=== PATIENT | male | born 1955 | race Caucasian/White ===

== ENCOUNTER 2020-12-10 09:41 | Emergency (ER) | payer OTHER, SELFPAY ==
[2020-12-10 10:02] VITALS: BP 148/86; PULSE 75; RESP 15; TEMP 36.3; O2SAT 99; BMI 34.5
--- NOTE | 2020-12-10 10:11 | ECG_ITS ---
[facility] Test Date: 2020-12-10 Pat Name: Carlos Schmitt Department: Room: Gender: Male Admitting Office Escort: : 1955 Requested By: Shivam Tejada Order Number: [id number] Leonora MD: Marly Villa M.D. Measurements Intervals [place] Rate: 66 P: 58 DC: 185 QRS: 11 QRSD: 110 T: 29 QT: 397 QTc: 416 Interpretive Statements SINUS RHYTHM No previous ECG available for comparison Electronically Signed On 12-11-2020 9:38:39 CDT by Marly Villa M.D. [email or web address] [email or web address] [facility] of meridianK2 Intelligencesumma [facility].Pigit/store/OM/[id number]
--- NOTE | 2020-12-10 10:35 | CTR_ITS ---
PROCEDURE INFORMATION: Exam: CT Abdomen And Pelvis With Contrast Exam date and time: 12/10/2020 10:35 AM Age: 65 years old Clinical indication: Abdominal pain; Colic; Additional info: Abd pain TECHNIQUE: Imaging protocol: Computed tomography of the abdomen and pelvis with contrast. Sagittal and coronal reformatted images were created and reviewed. Radiation optimization: All CT scans at this facility use at least one of these dose optimization techniques: automated exposure control; mA and/or kV adjustment per patient size (includes targeted exams where dose is matched to clinical indication); or iterative reconstruction. Contrast material: OMNIPAQUE 300; Contrast volume: 95 ml; Contrast route: INTRAVENOUS (IV); COMPARISON: No relevant prior studies available. RADIATION DOSE METRICS: Total DLP (mGy-cm): 1875.87 FINDINGS: Lungs: Visualized lungs are clear. Pleural spaces: No pleural effusion. Heart: Visualized portions of the heart are unremarkable. Liver: The liver is unremarkable. Gallbladder and bile ducts: Mildly increased radiopaque focus in the gallbladder adjacent to the anterior wall measuring 1.1 x 1.2 cm (series 2, image 27). No gallbladder wall thickening. No biliary ductal dilatation. Pancreas: The pancreas is unremarkable. No pancreatic ductal dilatation. Spleen: Multiple calcified granulomas in the spleen. Adrenal glands: The right and left adrenal glands are unremarkable. Kidneys and ureters: Subcentimeter hypodense foci in both right and left kidneys that are too small to characterize, however likely represent small cysts. Simple cyst in the left kidney measuring 1.7 cm (series 2, image 32). The right and left ureters are unremarkable. Stomach and bowel: Numerous diverticula in the descending colon and sigmoid colon. No acute abnormality in the small bowel. Appendix: The appendix is visualized and is unremarkable. No findings to suggest acute appendicitis. Intraperitoneal space: Marked wall thickening with extensive surrounding pericolonic inflammatory change and free fluid involving the proximal sigmoid colon. Vasculature: Mild atherosclerotic changes in the visualized arteries. No evidence for aortic aneurysm or aortic dissection. Hepatic veins, portal veins, splenic vein, and SMV are patent. Lymph nodes: No lymphadenopathy. Urinary bladder: Diffuse, moderate wall thickening of the bladder. Reproductive: Unremarkable as visualized. Bones/joints: Moderate degenerative changes at both the right and left hips. Mild degenerative changes of the right and left sacroiliac joints. Multilevel degenerative changes of varying severity in the visualized spine. Soft tissues: Small, fat-containing umbilical hernia. No evidence for strangulation. No acute abnormality in the extra-abdominal soft tissues. CT/CT abdomen pelvis w con* [id number] IMPRESSION: 1. Descending colon and sigmoid diverticulosis. Changes consistent with severe diverticulitis in the proximal sigmoid colon. 2. Mildly increased radiopaque focus in the gallbladder adjacent to the anterior wall. This may represent a small adherent gallstone or gallbladder polyp. Further evaluation recommended with ultrasound of the gallbladder on a nonemergent basis. 3. Diffuse, moderate wall thickening of the bladder. In the correct clinical setting, this may suggest cystitis. Recommend correlation with laboratory findings. Alternatively, this may be secondary to chronic outlet obstruction. 4. Small, fat-containing umbilical hernia. No evidence for strangulation. 5. Incidental/nonacute findings are listed in the report. COMMENTS: Consistent with the [employer]'s Incidental Findings Committee white paper (J Am Gifty Radiol 2018): Any incidental renal lesion less than 1 cm or classified as too small to characterize, or any incidental cystic renal lesion characterized as simple-appearing, is likely benign. No follow-up imaging is recommended for these lesions per consensus recommendations based on imaging criteria. Radiation Dose CTDIVOL = (mGy): DLP = 1875.87 (mGy-cm)
--- NOTE | 2020-12-10 10:45 | ECG_ITS ---
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 Measurements Intervals [place] Rate: 70 P: 35 TN: 182 QRS: -8 QRSD: 103 T: 16 QT: 385 QTc: 417 Interpretive Statements SINUS RHYTHM No previous ECG available for comparison Electronically Signed On 12-11-2020 9:38:34 CDT by Marly Villa M.D. [id number] f
[2020-12-10 10:46] LABS: Add Urine Microscopic? NO; Charge for UA Resulting for Rev
[2020-12-10 11:03] LABS: Bilirubin Urine 1+ (Negative); Blood Urine Neg (Negative); Glucose Urine UA Norm (Normal); Ketones Urine Negative (Negative); Leukocyte Esterase Urine Negative (Negative); Nitrate Urine Negative (Negative); Protein Urine Neg (Negative); Specific Gravity, Urine 1.025 (1.005-1.030); Sulfosalicylic Acid Urine Negative (Negative); Urine Appearance Clear (CLEAR); Urine Color Yellow (Yellow); Urobilinogen Urine Norm (Negative); pH Urine 5 (5-7)
[2020-12-10 11:07] LABS: Basophils # 0.1 10^3/uL (0.0-0.1); Basophils % 0.3 %; Eosinophils # 0.1 10^3/uL (0.0-0.8); Eosinophils % 0.4 %; Hematocrit 43.9 % (42.0-52.0); Hemoglobin 14.4 g/dL (11.7-16.6); Lymphocytes # 2.9 10^3/uL (0.8-4.8); Lymphocytes % 20.2 %; Mean Corpuscular HGB Conc 32.8 g/dL (30.0-36.0); Mean Corpuscular Hemoglobin 31.9 pg (28.0-34.0); Mean Corpuscular Volume 97.1 fL (80-94); Mean Platelet Volume 11.5 fL (7.4-10.4); Monocytes # 1.4 10^3/uL (0.2-0.9); Monocytes % 9.5 %; Neutrophils % 69.2 %; Nucleated Red Blood Cells % 0 %; Platelet Count 260 10^3/cmm (130-400); Red Blood Count 4.52 10^6/uL (4.1-5.3); Red Cell Distribution Width 12.4 % (12.1-15.1); White Blood Count 14.5 10^3/uL (4.0-10.0)
[2020-12-10] MEDS: sodium chloride 0.9% 1,000 ML 999 ML IV (11:10)
[2020-12-10] MEDS: ondansetron 2 mg/ML SDV 2 mL 4 MG IVP (11:10)
--- NOTE | 2020-12-10 11:28 | W.ED.ABDPA2 ---
HPI - Abdominal Pain General: Chief Complaint: Abdominal Pain Stated Complaint: LLQ abd pain Time Seen by Provider: 12/10/20 10:04 History of Present Illness: HPI narrative: 65-year-old male comes in complaining infraumbilical abdominal pain that began yesterday is more localized to his left lower quadrant denies any nausea vomiting diarrhea no hematochezia melena hematemesis coffee-ground emesis he said several colonoscopies in the past with removal of polyps he has never had episodes of diverticulitis he denies any dysuria urgency or frequency or hematuria. MD elicited complaint: abdominal pain Pertinent past history: other (Umbilical hernia) Onset (ago): hour(s) Pain Consistency: constant Location: LLQ Severity: moderate Quality: cramping Radiation: none Exacerbating factors: eating and movement Relieving factors: rest Associated Symptoms: Reports anorexia, bloating, GI cramping, nausea and poor appetite; Denies belching, change in bowel habits, change in stool character, chills, coffee ground emesis, constipation, diarrhea, dyspepsia, dysuria, excessive flatus, fever(s), heartburn, hematochezia, hematuria, hematemesis, fecal incontinence, loose stools, melena, syncope and vomiting Review of Systems Const: Denies: fever(s) or chills ENMT: Denies: throat pain, ear or mastoid pain, nasal discharge or nasal congestion Card: Denies: syncope Resp: Denies: dyspnea, productive cough or non-productive cough GI: Reports: nausea, bloating and GI cramping; Denies: vomiting, hematemesis, coffee ground emesis, heartburn, diarrhea, constipation, belching, excessive flatus, fecal incontinence, change in bowel habits, change in stool character, hematochezia or melena : Denies: dysuria or hematuria Skin/Breast: Denies: rash or pruritus Physical Exam Const: COMMON NORMALS: no acute distress GENERAL APPEARANCE: cooperative and comfortable ORIENTATION/CONSCIOUSNESS: Yes awake, Yes oriented to person, Yes oriented to place and Yes oriented to time HENMT: COMMON NORMALS: normocephalic, atraumatic, hearing grossly normal bilaterally and external ears normal HEAD & SCALP: normocephalic and atraumatic EXTERNAL EAR: Yes external ears normal Neck/C-Spine: COMMON NORMALS: no JVD Resp: COMMON NORMALS: normal respiratory effort, No retractions, No use of accessory muscles and clear to auscultation bilaterally AUSCULTATION: clear to auscultation bilaterally Cardio: COMMON NORMALS: no JVD, regular rate, regular rhythm and No murmurs present (Cardio) RATE: regular rate RHYTHM: regular rhythm GI: COMMON NORMALS: No hepatosplenomegaly present AUSCULTATION: Yes normoactive bowel sounds PALPATION: Yes Tenderness to palpation present (GI) Details: LLQ, No Guarding due to palpation present (GI) and Yes No hepatosplenomegaly present Extremity: COMMON NORMALS: normal to inspection, capillary refill normal, no clubbing, cyanosis or edema, no calf tenderness and no pedal edema Neuro: SENSORIUM/ORIENTATION: Yes oriented to person, Yes oriented to place and Yes oriented to time Skin: COMMON NORMALS: no rashes or lesions noted GENERAL SKIN EXAM: no rashes or lesions noted Course Vital Signs: Vital signs: Vital Signs Temperature 97.3 F L 12/10/20 10:02 Pulse Rate 63 12/10/20 12:53 Respiratory Rate 14 12/10/20 12:53 Blood Pressure 124/59 12/10/20 12:53 Pulse Oximetry 99 12/10/20 12:53 MDM - Abdominal Pain MDM Narrative: Medical decision making narrative: reviewed findings the patient will start on antibiotics orally and treat as an outpatient return if is worsening symptom. Lab Data: Labs: Lab Results 12/10/20 12/10/20 12/10/20 Range/Units 10:25 10:53 10:53 WBC 14.5 H (4.0-10.0) 10^3/ uL RBC 4.52 (4.1-5.3) 10^6/u L Hgb 14.4 (11.7-16.6) g/dL Hct 43.9 (42.0-52.0) % MCV 97.1 H (80-94) fL MCH 31.9 (28.0-34.0) pg MCHC 32.8 (30.0-36.0) g/dL RDW 12.4 (12.1-15.1) % Plt Count 260 (130-400) 10^3/c mm MPV 11.5 H (7.4-10.4) fL Neut % (Auto) 69.2 % Lymph % (Auto) 20.2 % Heard % (Auto) 9.5 % Eos % (Auto) 0.4 % Baso % (Auto) 0.3 % Neut # (Auto) 10.00 H (1.8-7.7) 10^3/u L Lymph # (Auto) 2.9 (0.8-4.8) 10^3/u L Heard # (Auto) 1.4 H (0.2-0.9) 10^3/u L Eos # (Auto) 0.1 (0.0-0.8) 10^3/u L Baso # (Auto) 0.1 (0.0-0.1) 10^3/u L Nucleated RBC % (a uto) 0 % Nucleated RBCs # 0.0 /100WBC Sodium 139 (136-145) mmol/L Potassium 4.0 (3.5-5.1) mmol/L Chloride 104 (98-107) mmol/L Carbon Dioxide 24 (22-29) mmol/L Anion Gap 15.0 (5-19) BUN 15 (8-23) mg/dL Creatinine 0.9 (0.7-1.2) mg/dL GFR Calculation 85.2 L (90-130) mL/min Glucose 102 (65-115) mg/dL Calculated Osmolal ity 289 (285-295) mOsm/k g Calcium 9.2 (8.5-10.5) mg/dL Total Bilirubin 0.6 (0.15-1.2) mg/dL AST 25 (0-40) U/L ALT 37 (0-41) U/L Alkaline Phosphata se 35 L (40-130) IU/L Total Protein 6.9 (6.6-8.7) g/dL Albumin 4.0 (3.5-5.2) g/dL Globulin 2.9 (1.3-4.6) g/dL Lipase 27 (13-60) U/L Urine Color Yellow (Yellow) Urine Appearance Clear (CLEAR) Urine pH 5 (5-7) Ur Specific Gravit y 1.025 (1.005-1.030) Urine Protein Neg (Negative) Urine Glucose (UA) Norm (Normal) Urine Ketones Negative (Negative) Urine Blood Neg (Negative) Urine Nitrate Negative (Negative) Urine Bilirubin 1+ H (Negative) Prot Sulfosalicyli c Acd Negative (Negative) Urine Urobilinogen Norm (Negative) mg/dL Ur Leukocyte Vanessa ase Negative (Negative) Discharge Plan Discharge Patient Disposition: Home Clinical Impression: Diverticulitis Condition: Stable Prescriptions: New hydrocodone-acetaminophen 5-325 mg tablet 1 tab PO Q6H PRN (Reason: pain) Qty: 20 RF: 0 Zofran 4 mg tablet 4 mg PO Q6H PRN (Reason: nausea and vomiting) Qty: 15 RF: 0 Cipro 500 mg tablet 500 mg PO BID Qty: 14 RF: 0 Discharge Orders: Discharge ED (Routine); Ordered 12/10/20 Ordered By: Shivam Brenner Referrals: Ronaldo Curran MD [Primary Care Provider] - Patient Instructions: Opioid Safety Coding Level of Care Code ED Sales Record Clerk for Evelin Fwd Exam Comprehensive
[2020-12-10 11:39] LABS: Alanine Aminotransferase 37 U/L (0-41); Alkaline Phosphatase 35 IU/L (40-130); Aspartate Amino Transferase 25 U/L (0-40); Blood Urea Nitrogen 15 mg/dL (8-23); Calcium 9.2 mg/dL (8.5-10.5); Carbon Dioxide 24 mmol/L (22-29); Chloride 104 mmol/L (98-107); Globulin 2.9 g/dL (1.3-4.6); Glomerular Filtration Rate 85.2 mL/min (90-130); Glucose 102 mg/dL (65-115); Lipase 27 U/L (13-60); Osmolality Calculated 289 mOsm/kg (285-295); Sodium 139 mmol/L (136-145); Total Bilirubin 0.6 mg/dL (0.15-1.2); Total Protein 6.9 g/dL (6.6-8.7)
[2020-12-10] MEDS: iohexol 300 mg/mL 100 mL Btl IV (12:25)
[2020-12-10 12:53] VITALS: BP 124/59; PULSE 63; RESP 14; O2SAT 99
--- NOTE | 2021-02-09 13:27 | PC.SOCIAL ---
follow up discharge call made, no answer, message left.
== END 2020-12-10 14:50 | disposition home or self-care (01) ==
PROVIDERS: Emergency Provider Family Medicine; PCP Family Medicine
DX: K57.92 Diverticulitis of intestine, part unspecified, without perforation or abscess without bleeding (principal)
CPT/HCPCS: 74177; 80053; 81003; 83690; 85025; 93005; 96361; 96374; 99284; J2405; J7030; Q9967

== ENCOUNTER 2021-02-03 07:02 | Observation (INO) | payer OTHER, SELFPAY ==
[2021-02-03] VITALS (17 sets, daily range): BP systolic 101–142; BP diastolic 49–81; PULSE 49–74; RESP 17–20; TEMP 36.7–36.8; O2SAT 94–98
--- NOTE | 2021-02-03 07:32 | CT_ITS ---
WS: [id number] CT ABDOMEN PELVIS TECHNIQUE: Contrast-enhanced CT of the abdomen and pelvis with coronal and sagittal reformatted image s. CLINICAL INFORMATION: LLQ abdominal pain, ?diverticulitis COMPARISON: December 10, 2020 DLP: 1857.[address] scans at [facility] use at least one of these dose optimization techniques: automat ed exposure control; mA and/or kV adjustment per patient size (includes targeted exams where dose is matched to clinical indication); or iterative reconstruction. FINDINGS: Moderate diffuse thickening of the descending left colon extending to the proximal sigmoid. Colonic t hickening with surrounding inflammatory stranding and edema compatible with acute diverticulitis. Thi s appears to involve the more proximal segment compared to the prior examination. No evidence of drai nable abscess or fluid collection. Normal liver. Normal portal vein and splenic vein. Normal gallbladder is unchanged in appearance with small calculus or polyp. Splenic granulomas. Normal GE junction. Enhancing masslike lesion in the gastric body measuring 3.5 x 3.4 CM. In retrospect this was present previously. Findings suspicious for gastric neoplasm. Recommend further evaluation with endoscopy. No gastric obstruction. Lung bases are well aerated. Normal pancreas. Adrenal glands are normal. Normal renal parenchymal enh ancement. No hydronephrosis. Bilateral renal cysts. Normal caliber abdominal aorta. No abdominal or p elvic lymphadenopathy. Prominent prostate. Evidence of mild bladder outlet obstruction. No pelvic lym phadenopathy. Fat-containing umbilical hernia. Impression CT/CT abdomen pelvis w con* [id number] IMPRESSION: 1. Acute diverticulitis in the left lower quadrant involving the distal descen ding left colon. No drainable abscess or fluid collection. This is just proxima l to the area of previously described diverticulitis which is essentially resol cruz. 2. Masslike heterogeneously enhancing lesion involving the intraluminal body o f the stomach measuring 3.6 x 3.4 cm suspicious for gastric neoplasm. Recommend further evaluation with endoscopy. No evidence of high-grade gastric obstructi on. 3. Stable small increased attenuation lesion in the gallbladder likely calculu s or polyp. This can be further evaluated with ultrasound. 4. Bilateral renal cysts. 5. Prominent prostate. Correlation PSA. Evidence of mild bladder outlet obstru ction. Notified Dany Brantley MD at 02/03/2021 9:44 AM.
--- NOTE | 2021-02-03 07:34 | ED_ITS ---
HPI - Abdominal Pain General: Chief Complaint: ER Hold Stated Complaint: pain in abd Time Seen by Provider: 02/03/21 07:15 History of Present Illness: HPI narrative: Mr. Schmitt is a 65-year-old gentleman with significant past medical history of diverticulitis who presents emergency department due to abdominal pain. He reports pain at his baseline health yesterday and even felt well enough to play a round of golf. This morning about 5:30 AM he woke up with a left lower quadrant abdominal pain. The pain is aching and sharp in quality and radiates mildly towards the groin. He has associated nausea but no vomiting. He has associated feeling like he has to pass gas. His last bowel movement was normal yesterday. He endorses moderate to severe intensity pain that is worse with palpation. This is fairly similar to previous episodes. He was initially diagnosed with diverticulitis in November and went through 2 rounds of medications with improvement in symptoms. No other significant changes in health, provoking, exacerbating, or relieving factors t hat the patient can think of. Review of Systems General: Reports: 10 or more systems reviewed and unremarkable except in HPI and below Narrative: CONSTITUTIONAL: denies fever, fatigue, weakness EYES - denies pain, denies loss of vision NOSE - denies congestion or rhinorrhea. THROAT - denies sore throat or difficulty swallowing. CARDIOVASCULAR - denies chest pain and palpitations RESPIRATORY - denies shortness of breath and cough GASTROINTESTINAL -see HPI GENITOURINARY - denies dysuria or urinary frequency MUSCULOSKELETAL- denies deformity or pain SKIN - denies rashes or new changed skin lesions NEUROLOGIC - denies focal weakness or sensory changes HEMATOLOGIC/LYMPHATIC - denies easy bruising or lymphadenopathy. [facility] ED PFSH: Medical History (Updated 02/03/21 @ 13:[address] MD) Alcohol intake above recommended sensible limits BPH (benign prostatic hyperplasia) Gout Hyperlipidemia Hypertension Nicotine dependence Obesity Social History (Updated 02/03/21 @ 13:[address] MD) Smoking and tobacco status: current every day smoker smokeless tobacco Alcohol intake: current Alcohol intake frequency: 3 or more drinks per day Alcohol type: beer Physical Exam Narrative: EXAM NARRATIVE: GENERAL/CONSTITUTIONAL - well-appearing. Uncomfortable due to pain Eyes - PERRL, no conjunctival injection ENMT - Atraumatic external nose and ears. Moist mucous membranes NECK - supple. trachea midline CARDIOVASCULAR - regular rate and rhythm. Peripheral pulses 2+ and equal RESPIRATORY -clear to auscultation bilaterally. No retractions or accessory muscle use. ABDOMEN/GI -tenderness to palpation of left lower quadrant no tenderness to percussion or evidence of peritonitis MSK - Extremities without obvious deformity or tenderness to palpation SKIN - Warm, Dry NEURO - alert and appropriately oriented. strength and sensation intact. Moves all extremities equally. PSYCH - Appropriate mood and affect Course ED course: - Patient was seen and evaluated by me at bedside - Patient placed on cardiac monitors, IV access obtained - Initial evaluation notable for uncomfortable due to pain, no evidence of remote peritonitis on abdominal exam. Localized tenderness to percussion present. -Offered analgesia which the patient declined. - Labs notable for leukocytosis - Imaging notable for diverticulitis without evidence of abscess or rupture -I discussed the results of ED evaluation with the patient. Previous diverticulitis was complicated by failure of outpatient regimen and both the patient and his were extremely reticent to discharge on oral medications - Upon serial reexamination after treatment the patient was similar. The patient continued to decline analgesia. - Based on patient history, evaluation, labs, and imaging as interpreted the most likely cause of the patient's condition is diverticulitis -Hospitalist service was consulted and came to evaluate the patient. Patient to be admitted for observation class. - Patient was admitted without further deterioration or significant events. Vital Signs: Vital signs: Vital Signs Temperature 98.8 F 02/05/21 04:00 Pulse Rate 48 L 02/05/21 04:00 Respiratory Rate 18 02/05/21 04:00 Blood Pressure 111/62 02/05/21 04:00 Pulse Oximetry 96 02/05/21 04:00 MDM - Abdominal Pain Medical Records: Attestation: I reviewed the patient's medical records. Lab Data: Attestation: I reviewed the patient's lab results. Labs: Lab Results 02/03/21 02/03/21 02/03/21 Range/Units 07:41 07:41 07:41 WBC 14.0 H (4.0-10.0) 10^3/ uL RBC 4.44 (4.1-5.3) 10^6/u L Hgb 14.1 (11.7-16.6) g/dL Hct 42.7 (42.0-52.0) % MCV 96.2 H (80-94) fl MCH 31.8 (28.0-34.0) pg MCHC 33.0 (30.0-36.0) g/dL RDW 12.8 (12.1-15.1) % Plt Count 286 (130-400) 10^3/c mm MPV 11.1 H (7.4-10.4) fL Neut % (Auto) 63.6 % Lymph % (Auto) 24.7 % [place] % (Auto) 9.7 % Eos % (Auto) 1.3 % Baso % (Auto) 0.4 % Neut # (Auto) 8.93 H (1.8-7.7) 10^3/u L Lymph # (Auto) 3.5 (0.8-4.8) 10^3/u L [place] # (Auto) 1.4 H (0.2-0.9) 10^3/u L Eos # (Auto) 0.2 (0.0-0.8) 10^3/u L Baso # (Auto) 0.1 (0.0-0.1) 10^3/u L Nucleated RBC % (a uto) 0 % Nucleated RBCs # 0.0 /100WBC Sodium 137 (136-145) mmol/L Potassium 4.2 (3.5-5.1) mmol/L Chloride 103 (98-107) mmol/L Carbon Dioxide 26 (22-29) mmol/L Anion Gap 12.2 (5-19) BUN 10 (8-23) mg/dL Creatinine 0.7 (0.7-1.2) mg/dL GFR Calculation 113.9 (90-130) mL/min Glucose 98 (65-115) mg/dL Calculated Osmolal ity 283 L (285-295) mOsm/k g Lactate 1.2 (0.5-2.2) mmol/L Calcium 8.8 (8.5-10.5) mg/dL Total Bilirubin 0.4 (0.15-1.2) mg/dL AST 17 (0-40) U/L ALT 18 (0-41) U/L Alkaline Phosphata se 33 L (40-130) IU/L Total Protein 6.8 (6.6-8.7) g/dL Albumin 4.1 (3.5-5.2) g/dL Globulin 2.7 (1.3-4.6) g/dL Lipase 34 (13-60) U/L TSH (0.27-4.20) uIU/ mL Urine Color (Yellow) Urine Appearance (CLEAR) Urine pH (5-7) Ur Specific Gravit y (1.005-1.030) Urine Protein (Negative) Urine Glucose (UA) (Normal) Urine Ketones (Negative) Urine Blood (Negative) Urine Nitrate (Negative) Urine Bilirubin (Negative) Urine Urobilinogen (Negative) mg/dL Ur Leukocyte Vanessa ase (Negative) 02/03/21 02/03/21 Range/Units 07:41 08:49 WBC (4.0-10.0) 10^3/ uL RBC (4.1-5.3) 10^6/u L Hgb (11.7-16.6) g/dL Hct (42.0-52.0) % MCV (80-94) fl MCH (28.0-34.0) pg MCHC (30.0-36.0) g/dL RDW (12.1-15.1) % Plt Count (130-400) 10^3/c mm MPV (7.4-10.4) fL Neut % (Auto) % Lymph % (Auto) % [place] % (Auto) % Eos % (Auto) % Baso % (Auto) % Neut # (Auto) (1.8-7.7) 10^3/u L Lymph # (Auto) (0.8-4.8) 10^3/u L [place] # (Auto) (0.2-0.9) 10^3/u L Eos # (Auto) (0.0-0.8) 10^3/u L Baso # (Auto) (0.0-0.1) 10^3/u L Nucleated RBC % (a uto) % Nucleated RBCs # /100WBC Sodium (136-145) mmol/L Potassium (3.5-5.1) mmol/L Chloride (98-107) mmol/L Carbon Dioxide (22-29) mmol/L Anion Gap (5-19) BUN (8-23) mg/dL Creatinine (0.7-1.2) mg/dL GFR Calculation (90-130) mL/min Glucose (65-115) mg/dL Calculated Osmolal ity (285-295) mOsm/k g Lactate (0.5-2.2) mmol/L Calcium (8.5-10.5) mg/dL Total Bilirubin (0.15-1.2) mg/dL AST (0-40) U/L ALT (0-41) U/L Alkaline Phosphata se (40-130) IU/L Total Protein (6.6-8.7) g/dL Albumin (3.5-5.2) g/dL Globulin (1.3-4.6) g/dL Lipase (13-60) U/L TSH 2.17 (0.27-4.20) uIU/ mL Urine Color Straw (Yellow) Urine Appearance Clear (CLEAR) Urine pH 5 (5-7) Ur Specific Gravit y 1.015 (1.005-1.030) Urine Protein Neg (Negative) Urine Glucose (UA) Norm (Normal) Urine Ketones Negative (Negative) Urine Blood Neg (Negative) Urine Nitrate Negative (Negative) Urine Bilirubin Neg (Negative) Urine Urobilinogen Norm (Negative) mg/dL Ur Leukocyte Vanessa ase Negative (Negative) Discharge Plan Discharge Patient Disposition: Admitted As Inpatient Admit Provider: Luis Lane Coding Level of Care Code ED Odd Shoe Examiner for Evelin Kelly
[2021-02-03] MEDS: sodium chloride 0.9% 500 ML IV (07:46)
[2021-02-03 07:48] LABS: Basophils # 0.1 10^3/uL (0.0-0.1); Basophils % 0.4 %; Eosinophils # 0.2 10^3/uL (0.0-0.8); Eosinophils % 1.3 %; Hematocrit 42.7 % (42.0-52.0); Hemoglobin 14.1 g/dL (11.7-16.6); Lymphocytes # 3.5 10^3/uL (0.8-4.8); Lymphocytes % 24.7 %; Mean Corpuscular Hemoglobin 31.8 pg (28.0-34.0); Mean Corpuscular Volume 96.2 fl (80-94); Mean Platelet Volume 11.1 fL (7.4-10.4); Monocytes # 1.4 10^3/uL (0.2-0.9); Monocytes % 9.7 %; Neutrophils # 8.93 10^3/uL (1.8-7.7); Neutrophils % 63.6 %; Nucleated Red Blood Cells % 0 %; Platelet Count 286 10^3/cmm (130-400); Red Blood Count 4.44 10^6/uL (4.1-5.3); Red Cell Distribution Width 12.8 % (12.1-15.1)
[2021-02-03 08:06] LABS: Lactate (Lactic Acid level) 1.2 mmol/L (0.5-2.2)
[2021-02-03 08:13] LABS: Alanine Aminotransferase 18 U/L (0-41); Albumin Level 4.1 g/dL (3.5-5.2); Aspartate Amino Transferase 17 U/L (0-40); Blood Urea Nitrogen 10 mg/dL (8-23); Calcium 8.8 mg/dL (8.5-10.5); Carbon Dioxide 26 mmol/L (22-29); Globulin 2.7 g/dL (1.3-4.6); Glomerular Filtration Rate 113.9 mL/min (90-130); Glucose 98 mg/dL (65-115); Lipase 34 U/L (13-60); Total Bilirubin 0.4 mg/dL (0.15-1.2); Total Protein 6.8 g/dL (6.6-8.7)
[2021-02-03 08:18] LABS: Anion Gap 12.2 (5-19); Chloride 103 mmol/L (98-107); Osmolality Calculated 283 mOsm/kg (285-295); Potassium 4.2 mmol/L (3.5-5.1); Sodium 137 mmol/L (136-145)
[2021-02-03 08:21] LABS: Alkaline Phosphatase 33 IU/L (40-130)
[2021-02-03 09:06] LABS: Add Urine Microscopic? NO; Charge for UA Resulting for Rev
[2021-02-03] MEDS: iohexol 300 mg/mL 100 mL Btl IV (09:20)
[2021-02-03 09:23] LABS: Bilirubin Urine Neg (Negative); Blood Urine Neg (Negative); Glucose Urine UA Norm (Normal); Ketones Urine Negative (Negative); Leukocyte Esterase Urine Negative (Negative); Nitrate Urine Negative (Negative); Protein Urine Neg (Negative); Specific Gravity, Urine 1.015 (1.005-1.030); Urine Appearance Clear (CLEAR); Urine Color Straw (Yellow); Urobilinogen Urine Norm (Negative); pH Urine 5 (5-7)
[2021-02-03] MEDS: levofloxacin-dextrose 5 % 750 MG/150 ML PREMIX 100 MG IV (10:31)
--- NOTE | 2021-02-03 12:03 | PM.HP ---
Providers/Chief Complaint Primary Care Provider: Ronaldo Curran MD Chief Complaint: pain in abd History of Present Illness Carlos Schmitt is a 65 year old male who presents with complaints of left-sided abdominal discomfort starting around 5 AM. He reports this week he has felt a little bit of fullness under his umbilicus. He had an episode of diverticulitis in late November in which she got 2 courses of antibiotics, perhaps 17 to 20 days total. Last bowel movement was yesterday, formed. He reports no blood in his stool. He denies any fevers at home. He denies any prior episodes of diverticulitis other than that already described above. He reports he is usually quite healthy. 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 Reports his last colonoscopy was several years ago, showing polyps but diverticuli were not brought up. Review of Systems General: Reports: 10 or more systems reviewed and unremarkable except in HPI and below Const: Denies: fever(s) Eyes: Denies: change in vision ENMT: Denies: throat pain Card: Denies: chest pain Resp: Denies: dyspnea GI: Reports: abdominal pain : Denies: flank pain Musc: Denies: neck pain Skin/Breast: Denies: rash Neuro: Denies: headache(s) Psych: Denies: anxiety Endo: Denies: polyuria Artis/Lymph: Denies: easy bruising All/Imm: Denies: urticaria Medications/Allergies Home Medications Medication Instructions Recorded Confirmed Last Taken Type ondansetron HCl [Zofran] 4 mg PO Q6H PRN #15 tab 12/10/20 02/03/21 Unknown Rx allopurinol 300 mg PO QAM 02/03/21 02/03/21 02/03/21 06:30 History amlodipine [Norvasc] 5 mg PO QAM 02/03/21 02/03/21 02/03/21 History benazepril 5 mg PO QAM 02/03/21 02/03/21 02/03/21 History bisoprolol-hydrochlorothiazide 1 tab PO QAM 02/03/21 02/03/21 02/03/21 History tamsulosin [Flomax] 0.4 mg PO BEDTIME 02/03/21 02/03/21 02/01/21 History Allergies Allergy/AdvReac Type Severity Reaction Status Date / Time Penicillins Allergy ALGY-Anaphy Verified 02/03/21 09:56 laxis PFSH Acute PFSH: Medical History (Updated 02/03/21 @ 13:[address] MD) Alcohol intake above recommended sensible limits BPH (benign prostatic hyperplasia) Gout Hyperlipidemia Hypertension Nicotine dependence Obesity Social History (Updated 02/03/21 @ 13:[address] MD) Smoking and tobacco status: current every day smoker smokeless tobacco Alcohol intake: current Alcohol intake frequency: 3 or more drinks per day Alcohol type: beer Supplemental PFSH Information: Denies any significant surgeries. Denies any significant family history. Reports 6 beers a day, no history of withdrawal. Vitals/I&O/Wt Last Vital Signs Temp 98.1 F 02/03/21 07:22 Pulse 54 L 02/03/21 11:04 Resp 18 02/03/21 11:04 BP 104/49 02/03/21 11:04 Pulse Ox 97 02/03/21 11:04 02/02/21 02/03/21 02/03/21 22:59 06:59 14:59 Intake Total 500 / 500 Balance 500 / 500 Weight last 48 hrs Weight 108.862 kg Physical Exam Narrative: EXAM NARRATIVE: General exam is a white male, with apparent left lower quadrant pain HEENT: Pupils equally round. Oropharynx clear. Neck is supple no lymphadenopathy or thyromegaly cardiovascular bradycardic, no murmur lungs clear no wheezing or crackles abdomen is soft. Positive bowel sounds. Tenderness to palpation left lower quadrant. No evidence of peritonitis. exam is deferred extremities no cyanosis clubbing or edema skin no rash neuro no obvious focal deficits. Data : 02/03/21 07:41 02/03/21 07:41 Other data: LFTs are normal. Lipase normal albumin 4.1 lactate 1.2 calcium 8.8 urine dip negative abdomen pelvis CT demonstrates acute diverticulitis distal descending colon with no evidence of abscess or perforation. Masslike density stomach with need for further follow-up prominent prostate gallbladder polyp versus stone A&P Assessment and plan (1) Acute diverticulitis: Observation received a dose of Levaquin and Flagyl in the emergency department. Will continue Cipro and Flagyl inpatient. Blood cultures n.p.o. for now pain control with morphine, Zofran for nausea support with IV fluids to prevent dehydration if does well initiate diet and possible discharge tomorrow. Discussed with him indications for possible partial colectomy should episodes of diverticulitis continue, severe episodes. Discussed with him potential for colonoscopy as follow-up in the future as well. Status: Acute (2) Bradycardia: Check EKG Status: Acute (3) Hypertension: Blood pressure somewhat lower than his norm. Continue blood pressure medicine as tolerated but hold bisoprolol hydrochlorothiazide at this time secondary to softer blood pressures and bradycardia Will also check EKG. See above. Status: Acute (4) Alcohol intake above recommended sensible limits: Status: Acute Additional A&P Information Abnormal CT with concern of density in the stomach, cancer not excluded as well as concern of enlarged prostate and bladder wall thickening. Informed patient of both these findings and recommended follow-up as an outpatient and consideration of EGD. At this point will check bladder scan, for any significant residual. Full code Lovenox for DVT prophylaxis Attestations Medical Necessity Statement*: Will need less than 2 midnight stay for evaluation and treatment of acute diverticulitis. Coding Level of Care Code Acute Field Application Engineer for [facility] Fwd Diagnoses Acute diverticulitis K57.92 Bradycardia R00.1 Hypertension I10 Alcohol intake above recommended sensible limits Z72.89
[2021-02-03] MEDS: metroNIDAZOLE IV 500 MG/100 ML PREMIX 100 MG IV ×2 (12:12→20:11)
--- NOTE | 2021-02-03 13:07 | ECG_ITS ---
[facility] Test Date: 2021-02-03 Pat Name: Carlos Schmitt Department: Room: Gender: Male Help Desk Agent: : 1955 Requested By: Luis Giraldo Order Number: [id number] Leonora MD: Marly Villa M.D. Measurements Intervals [place] Rate: 55 P: 40 DC: 188 QRS: -8 QRSD: 114 T: 19 QT: 428 QTc: 411 Interpretive Statements SINUS BRADYCARDIA MODERATE INTRAVENTRICULAR CONDUCTION DELAY [110+ ms QRS DURATION] Compared to ECG 12/10/2020 10:36:41 Intraventricular conduction delay now present Sinus rhythm no longer present Electronically Signed On 02-03-2021 19:40:54 CDT by Marly Villa M.D. [id number]
[2021-02-03] MEDS: sodium chloride 0.9% 1,000 ML 100 ML IV (14:37)
[2021-02-03] MEDS: famotidine 20 mg/2 mL INJ IVP (14:38)
[2021-02-03] MEDS: enoxaparin 40 mg/0.4 mL Syringe SUBCUT (14:38)
[2021-02-03] MEDS: ondansetron 2 mg/ML SDV 2 mL 4 MG IVP ×2 (16:15→22:52)
[2021-02-03] MEDS: morphine 4 mg/mL SDV 1 mL 2 MG IVP ×2 (16:15→20:36)
[2021-02-03 19:15] LABS: Thyroid Stimulating Hormone 2.17 uIU/mL (0.27-4.20)
[2021-02-03] MEDS: tamsulosin 0.4 mg Capsule PO (21:31)
[2021-02-04] VITALS: BP 121/72; PULSE 62; RESP 18; TEMP 36.8; O2SAT 97
[2021-02-04] MEDS: sodium chloride 0.9% 1,000 ML 100 ML IV ×2 (01:37→10:31)
[2021-02-04] MEDS: metroNIDAZOLE IV 500 MG/100 ML PREMIX 100 MG IV ×4 (01:43→21:29)
[2021-02-04] MEDS: famotidine 20 mg/2 mL INJ IVP ×2 (01:46→13:37)
[2021-02-04 04:00] VITALS: BP 117/70; PULSE 66; RESP 18; TEMP 36.6; O2SAT 96
[2021-02-04] MEDS: amlodipine 5 mg Tablet PO (05:38)
[2021-02-04] MEDS: allopurinol 300 mg Tablet PO (05:38)
[2021-02-04] MEDS: lisinopril 10 mg Tablet 5 MG PO (05:39)
[2021-02-04] MEDS: ciprofloxacin 400 MG/200 ML PREMIX 200 MG IV ×2 (06:14→18:05)
--- NOTE | 2021-02-04 06:40 | PC.NURSE ---
Shift summary Pt has slept most of the night. He complains of LLQ pain and was given morphine once. He was also given zofran once and is on antibiotics. He got up once to use the bathroom
[2021-02-04 07:58] VITALS: BP 106/63; PULSE 50; RESP 17; TEMP 37; O2SAT 97
[2021-02-04 10:40] LABS: Basophils % 0.4 %; Eosinophils # 0.1 10^3/uL (0.0-0.8); Eosinophils % 1.3 %; Hematocrit 43.9 % (42.0-52.0); Hemoglobin 13.9 g/dL (11.7-16.6); Lymphocytes # 2.4 10^3/uL (0.8-4.8); Lymphocytes % 26.7 %; Mean Corpuscular HGB Conc 31.7 g/dL (30.0-36.0); Mean Corpuscular Hemoglobin 31.6 pg (28.0-34.0); Mean Corpuscular Volume 99.8 fl (80-94); Mean Platelet Volume 11.9 fL (7.4-10.4); Monocytes # 0.8 10^3/uL (0.2-0.9); Monocytes % 9.1 %; Neutrophils # 5.57 10^3/uL (1.8-7.7); Neutrophils % 62.1 %; Nucleated Red Blood Cells % 0 %; Platelet Count 283 10^3/cmm (130-400); Red Cell Distribution Width 12.8 % (12.1-15.1)
[2021-02-04 11:25] LABS: Alanine Aminotransferase 14 U/L (0-41); Albumin Level 3.9 g/dL (3.5-5.2); Alkaline Phosphatase 32 IU/L (40-130); Anion Gap 13.2 (5-19); Aspartate Amino Transferase 12 U/L (0-40); Blood Urea Nitrogen 9 mg/dL (8-23); Carbon Dioxide 26 mmol/L (22-29); Chloride 104 mmol/L (98-107); Globulin 3.2 g/dL (1.3-4.6); Glomerular Filtration Rate 97.6 mL/min (90-130); Glucose 88 mg/dL (65-115); Magnesium 1.9 mg/dL (1.7-2.3); Osmolality Calculated 286 mOsm/kg (285-295); Potassium 4.2 mmol/L (3.5-5.1); Sodium 139 mmol/L (136-145); Total Bilirubin 0.6 mg/dL (0.15-1.2); Total Protein 7.1 g/dL (6.6-8.7)
[2021-02-04 12:00] VITALS: BP 115/66; PULSE 53; RESP 16; TEMP 36.2; O2SAT 97
--- NOTE | 2021-02-04 13:33 | P.PN_ITS ---
Subjective Subjective: Interval history: 65 yo male admitted for diverticuiltis He had an episode of diverticulitis in late November in which she got 2 courses of antibiotics, perhaps 17 to 20 days total. afebrile less abdominal pain started on clear liquid diet Vitals/I&O/Wt Last Vital Signs Temp 97.1 F L 02/04/21 12:00 Pulse 53 L 02/04/21 12:00 Resp 16 02/04/21 12:00 BP 115/66 02/04/21 12:00 Pulse Ox 97 02/04/21 12:00 02/03/21 02/04/21 02/04/21 22:59 06:59 14:59 Intake Total 363.333 / 1113.333 836.667 / 1950.000 890 / 890 Output Total 650 / 650 600 / 600 Balance 363.333 / 1113.333 186.667 / 1300.000 290 / 290 Weight last 48 hrs Weight 240 lb Physical Exam Const: COMMON NORMALS: no acute distress and average body habitus Chest: COMMONS NORMALS: normal inspection of the chest Resp: COMMON NORMALS: normal respiratory effort and No retractions Cardio: COMMON NORMALS: regular rate RATE: regular rate GI: COMMON NORMALS: Normal to inspection, nondistended, normoactive bowel sounds present and Soft to palpation PALPATION: Yes Soft to palpation Psych: COMMON NORMALS: mental status grossly normal Skin: COMMON NORMALS: no rashes or lesions noted GENERAL SKIN EXAM: no rashes or lesions noted Data : 02/04/21 10:05 02/04/21 10:05 Micro: Microbiology 02/04/21 10:09 Blood Culture - Preliminary Blood SPECIMEN COLLECTED 02/04/21 10:05 Blood Culture - Preliminary Blood SPECIMEN COLLECTED A&P Assessment and plan (1) Acute diverticulitis: Status: Acute (2) Hypertension: Status: Acute (3) Alcohol intake above recommended sensible limits: Status: Acute Additional A&P Information #diverticulitis --stable --continue IV abx --advance diet --likely transition to PO in AM #bradycardia --keep on monitor -BB on hold #etoh use --noted in chart #covid 19 unvaccinated --patient counseled Attestations Medical Necessity Statement*: Carlos Schmitt's hospital stay will require greater than 2 midnights for diverticulitis Coding Level of Care Code Acute Business Intelligence Analyst for [facility] Fwd Diagnoses Acute diverticulitis K57.92 Hypertension I10 Alcohol intake above recommended sensible limits Z72.89
[2021-02-04] MEDS: enoxaparin 40 mg/0.4 mL Syringe SUBCUT (13:38)
[2021-02-04] MEDS: acetaminophen 325 mg Tablet 650 MG PO ×2 (15:25→21:30)
[2021-02-04 15:51] VITALS: BP 123/70; PULSE 63; RESP 16; TEMP 37.2; O2SAT 98
[2021-02-04 20:00] VITALS: BP 127/78; PULSE 61; RESP 17; TEMP 36.6; O2SAT 97
[2021-02-04] MEDS: tamsulosin 0.4 mg Capsule PO (21:30)
[2021-02-05] VITALS: BP 130/79; PULSE 56; RESP 18; TEMP 36.6; O2SAT 95
[2021-02-05] MEDS: sodium chloride 0.9% 1,000 ML 100 ML IV (02:17)
[2021-02-05] MEDS: metroNIDAZOLE IV 500 MG/100 ML PREMIX 100 MG IV ×3 (02:17→12:51)
[2021-02-05] MEDS: famotidine 20 mg/2 mL INJ IVP (02:17)
[2021-02-05 04:00] VITALS: BP 111/62; PULSE 48; RESP 18; TEMP 37.1; O2SAT 96
[2021-02-05] MEDS: lisinopril 10 mg Tablet 5 MG PO (06:15)
[2021-02-05] MEDS: ciprofloxacin 400 MG/200 ML PREMIX 200 MG IV (06:16)
[2021-02-05] MEDS: amlodipine 5 mg Tablet PO (06:16)
[2021-02-05] MEDS: allopurinol 300 mg Tablet PO (06:16)
[2021-02-05 07:50] VITALS: BP 129/78; PULSE 58; RESP 16; TEMP 36.4; O2SAT 94
--- NOTE | 2021-02-05 08:08 | PC.CHAP ---
Pastoral Care Encounter/Spiritual Assessment Type of Contact [] Declined plunger scoop operator visit [] Patient/Family/Request visit [] Outpatient visit [] Follow-up visit [] Physician referral [] Code/Alert [X] Routine visit [] Staff referral [] Actively dying [X] Patient sleeping [] Family support [] [] Out of room [] Palliative care [] [] Receiving care in room [] Pre-surgical visit [] Trauma [] Long length of stay [] ICU visit [] Other: Relational/Emotional Strength [] Patient feels connected with others/family/visitors/staff [] Distress [] Loneliness/isolation [] Abandonment Spirituality of Patient [] Person of Sophie [] Attends Mormon of their Sophie [] Believes in Prayer [] Reads Bible or Yazdanism materials [] There are Spiritual issues to be addressed Cement Truck Loader Interventions [] Prayer [] Active listening [] Non-anxious presence [] Spiritual/emotional support [] Crisis/trauma care [] Spiritual counseling [] Bereavement support [] Provided bereavement packet [] Provided Bible/devotional materials [] Provided toy/stuffed animal, coloring book to patient or family member [] Provided Communion [] Anointing/[place] [] Salvation [] Completed spiritual assessment [] Other: Impact on Illness or Injury [] Angry [] Fearful [] Anxious [] Often cries [] Exhaustion [] Unable to work [] Unable to attend restorationist [] Unable to walk/stand [] Unable to read [] Unable to drive [] Unable to eat/drink [] Unable to sleep [] Unable to be with family [] Patient intubated [] Other: Summary Time spent with patient
--- NOTE | 2021-02-05 11:17 | PC.CHAP ---
Pastoral Care Encounter/Spiritual Assessment Type of Contact [] Declined matting press tender visit [] Patient/Family/Request visit [] Outpatient visit [x] Follow-up visit [] Physician referral [] Code/Alert [x] Routine visit [] Staff referral [] Actively dying [] Patient sleeping [] Family support [] [] Out of room [] Palliative care [] [] Receiving care in room [] Pre-surgical visit [] Trauma [] Long length of stay [] ICU visit [] Other: Relational/Emotional Strength [x] Patient feels connected with others/family/visitors/staff [] Distress [] Loneliness/isolation [] Abandonment Spirituality of Patient [x] Person of Sophie [] Attends Presybeterian of their Sophie [x] Believes in Prayer [x] Reads Bible or Catholic materials [] There are Spiritual issues to be addressed Nissan Sales Consultant Interventions [x] Prayer [x] Active listening [x] Non-anxious presence [x] Spiritual/emotional support [] Crisis/trauma care [] Spiritual counseling [] Bereavement support [] Provided bereavement packet [x] Provided Bible/devotional materials [] Provided toy/stuffed animal, coloring book to patient or family member [] Provided Communion [] Anointing/[place] [] Salvation [x] Completed spiritual assessment [] Other: Impact on Illness or Injury [] Angry [] Fearful [] Anxious [] Often cries [] Exhaustion [] Unable to work [] Unable to attend mormonism [] Unable to walk/stand [] Unable to read [] Unable to drive [] Unable to eat/drink [] Unable to sleep [] Unable to be with family [] Patient intubated [] Other: Summary Nissan Sales Consultant prayed with patient. Time spent with patient 10 minutes.
[2021-02-05 12:00] VITALS: BP 126/78; PULSE 78; RESP 17; TEMP 36.4; O2SAT 97
[2021-02-05 14:09] VITALS: BP 126/78; PULSE 78; RESP 17; TEMP 36.4; O2SAT 97
--- NOTE | 2021-02-05 15:17 | PM.DCS ---
Discharge Providers Date of Admission: 02/04/21 11:59 Date of Discharge: February 05, 2021 Attending Provider at Admission: Luis Lane MD Attending Provider at Discharge: Rafa Vargas MD Primary Care Provider: Ronaldo Curran MD Diagnoses at Discharge Discharge Diagnosis (1) Acute diverticulitis: Status: Acute (2) Hypertension: Status: Acute (3) Alcohol intake above recommended sensible limits: Status: Acute (4) Gastric mass: Status: Acute Reason for Visit Reason for Visit: pain in abd Hospital Course Hospital Course 65-year-old male with history of diverticulitis presented with left-sided abdominal discomfort. In November he was also treated for diverticulitis with antibiotics. Symptoms were very similar. He had imaging completed which confirmed diagnosis. Also noted to have an enlarged prostate and suspected gastric mass. He was treated with IV antibiotics. Diet was advanced. Literature on diagnosis and diet was provided. He has discharged with oral Cipro and Flagyl. In improved condition. He will follow-up with his primary care advised for him to have endoscopy for further work-up of this mass. He was agreeable to that. He was discharged in improved condition. Physical Exam Const: COMMON NORMALS: no acute distress and patient oriented x3 Chest: COMMONS NORMALS: normal inspection of the chest Resp: COMMON NORMALS: No retractions Cardio: COMMON NORMALS: regular rate and regular rhythm RATE: regular rate RHYTHM: regular rhythm GI: COMMON NORMALS: Soft to palpation and non-tender PALPATION: Yes Soft to palpation Neuro: COMMON NORMALS: patient oriented x3 and CN's II-XII intact bilaterally Psych: COMMON NORMALS: mental status grossly normal and Normal thought process present THOUGHT PROCESS: Normal thought process present Skin: COMMON NORMALS: no rashes or lesions noted GENERAL SKIN EXAM: no rashes or lesions noted Discharge Data Data Completed and Pending: Completed Studies During Hospitalization Category Date Time Status CT abdomen pelvis w con* [id number] Urge nt Cat Scan 02/03/21 07:32 Completed Pending at discharge Category Date Time Status Blood Culture Sta t Lab 02/03/21 13:12 Results Vitals: Last Vital Signs Temp 97.6 F 02/05/21 14:09 Pulse 78 02/05/21 14:09 Resp 17 02/05/21 14:09 BP 126/78 02/05/21 14:09 Pulse Ox 97 02/05/21 14:09 Discharge Plan Discharge Patient Disposition: Home Condition: Stable Prescriptions: New ciprofloxacin HCl 500 mg tablet 500 mg PO BID Qty: 20 RF: 0 metronidazole 500 mg tablet 500 mg PO Q12H 10 Days Qty: 20 RF: 0 Probiotic 3 billion cell capsule 3,000 mmu cells PO DAILY Qty: 30 RF: 0 Continued ondansetron HCl [Zofran] 4 mg tablet 4 mg PO Q6H PRN (Reason: nausea and vomiting) Qty: 15 RF: 0 benazepril 5 mg Tablet 5 mg PO QAM RF: 0 Norvasc 5 mg Tablet 5 mg PO QAM RF: 0 bisoprolol-hydrochlorothiazide 2.5-6.25 mg Tablet 1 tab PO QAM RF: 0 Flomax 0.4 mg Capsule 0.4 mg PO BEDTIME RF: 0 allopurinol 300 mg tablet 300 mg PO QAM RF: 0 Discharge Orders: Discharge Order (Routine); Ordered 02/05/21 Ordered By: Rafa Vargas Referrals: Ronaldo Curran MD [Primary Care Provider] - 7-10 days (Please call Dr. Curran's office Saturday morning to schedule a follow-up appointment. ) Discharge Diet: As Directed Discharge Activity: Resume usual activity Patient Instructions: Ciprofloxacin (By mouth), Metronidazole (By mouth), Probiotic (By mouth), Diverticulitis (DC), Opioid Safety Activity Restrictions/Additional Instructions: return to work in 7-10 days Discharge Attestations Time Spent in Discharge Care*: less than 30 min Specific Discharge Activities: educating patient Quality Metrics Clinical Quality Measures During this hospital stay, did patient experience: None Coding Level of Care Code Acute Chg FW DC note Diagnoses Acute diverticulitis K57.92 Hypertension I10 Alcohol intake above recommended sensible limits Z72.89 Gastric mass K31.89
--- NOTE | 2021-02-08 12:23 | PC.RESP ---
SMOKING CESSATION INFORMATION SENT TO PATIENT.
== END 2021-02-05 14:28 | disposition home or self-care (01) ==
LOC: ER 11:22 → MEDSURG 16:29
PROVIDERS: Admitting Provider Internal Medicine; Emergency Provider Emergency Medicine; PCP Family Medicine; Visit Provider Internal Medicine
DX: K57.92 Diverticulitis of intestine, part unspecified, without perforation or abscess without bleeding (principal); Z72.89 Other problems related to lifestyle; I10 Essential (primary) hypertension; K31.89 Other diseases of stomach and duodenum; R00.1 Bradycardia, unspecified; N40.0 Benign prostatic hyperplasia without lower urinary tract symptoms; E78.5 Hyperlipidemia, unspecified; E66.9 Obesity, unspecified; Z68.32 Body mass index [BMI] 32.0-32.9, adult; F17.290 Nicotine dependence, other tobacco product, uncomplicated
CPT/HCPCS: 36415; 74177; 80053; 81003; 83605; 83690; 83735; 84443; 85025; 87040; 93005; 96365; 96367; 96372; 99285; G0378; J0744; J1650; J1956; J2270; J2405; J3490; J7030; J7040; Q9967; S0030

== ENCOUNTER 2021-07-13 11:44 | Outpatient (CLI) | payer OTHER, SELFPAY ==
[2021-07-13 14:39] LABS: Basophils % 0.3 %; Eosinophils # 0.2 10^3/uL (0.0-0.8); Eosinophils % 1.8 %; Hematocrit 42.7 % (42.0-52.0); Hemoglobin 14.1 g/dL (11.7-16.6); Lymphocytes # 3.8 10^3/uL (0.8-4.8); Lymphocytes % 40.9 %; Mean Corpuscular Hemoglobin 31.4 pg (28.0-34.0); Mean Corpuscular Volume 95.1 fl (80-94); Mean Platelet Volume 11.6 fL (7.4-10.4); Monocytes # 0.8 10^3/uL (0.2-0.9); Monocytes % 8.6 %; Neutrophils # 4.49 10^3/uL (1.8-7.7); Neutrophils % 48.2 %; Nucleated Red Blood Cells % 0 %; Platelet Count 313 10^3/cmm (130-400); Red Blood Count 4.49 10^6/uL (4.1-5.3); Red Cell Distribution Width 12.2 % (12.1-15.1); White Blood Count 9.3 10^3/uL (4.0-10.0)
--- NOTE | 2021-07-14 12:21 | ONC CON_ITS ---
Dr. Noland New Patient Note Patient: Carlos Schmitt Unit #: [id number]: 1955 Dicatated By: Martin Noland M.D.Date of Visit: Jul 13, 2021 Onc MED New Patient/Consult Referring Physician: Dr. Praful Wilder M.D. History of Present Illness: Mr. Carlos Schmitt, is a 65-year-old gentleman with a history of incidental finding of gastric mass on CT scan done for diverticulitis. As per patient in January [address] scan of abdomen with concern regarding colitis and it showed incidental finding of 3.5 x 3.4 cm mass in the gastric body, on April 24, 2021, he underwent EUS by Dr. Kulkarni which confirmed large gastric mass measuring 37 mm in diameter. FNA of this mass was positive for spindle cell neoplasm favoring GIST. Patient underwent MRI scan of abdomen on May 10, 2021 which confirmed well-circumscribed heterogeneously enhancing mass within the proximal gastric body measuring up to 4 cm consistent with known biopsy-proven GIST. No finding for metastatic disease in abdomen or pelvis. A 1 cm enhancing gallbladder polyp. 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 Denies any abdominal pain, denies any nausea or vomiting denies any diarrhea or constipation, as per patient nowadays he is taking small meals but more often and his weight has been stable but prior to that he lost some weight., Denies any jaundice, denies any abdominal fullness. History of tobacco chewing but quit recently, history of alcohol use mainly beer, as per patient he quit that in May 2021, no history of smoking. Past Medical History: Mr. Prices medical history consists of colon polyps, diverticulitis, gout, hyperlipidemia, hypertension, and obstructive sleep apnea. Past Surgical History: Mr. Perez surgical/procedural history consists of cholecystectomy, colonoscopy, and partial gastrectomy. Medications: Allopurinol 1 Tablet (of 300 mg) Oral daily, amLODIPine Besylate 1 Tablet (of 5 mg) Oral daily, Benazepril HCl 1 Tablet (of 5 mg) Oral daily, Bisoprolol-hydroCHLOROthiazide 1 Tablet (of 2.5-6.25 mg) Oral daily, Prazosin HCl 1 Capsule (of 1 mg) Oral daily Allergies: Bee Venom, Penicillins, and Wasp Venom. Social History: Mr. Schmitt is . Mr. Schmitt has never smoked. He drinks daily. He consumes 2 drinks/day. He has indicated exposure to the following products: cigarettes. Quit chewing tobacco and alcohol about a month ago. Family History: Mr. Schmitt's mother is alive. Mr. Schmitt's father at age 72. Review Of Symptoms: Review of Systems is not available for this patient. Vital Signs: Performed on Jul 13, 2021 16:30: 5, 0, 31.52 (HIGH), 2.27 sq.m, 72 in, 97 %, 68 /min, 18 /min, 97/61 mm(hg), 97.7 F (LOW), and 232.4 lbs (HIGH). Performance Status: 0 - Fully active, able to carry on all predisease activities without restrictions. (ECOG) Physical Examination: ENMT - No mouth sores, no thrush, no jaundice, Respiratory - Lungs are clear to auscultation, Cardiovascular - Regular rate and rhythm of heart, Abdomen - Soft, bowel sounds present, well-healed midline surgical scar, Extremities - No visible edema. Lab/Imaging: Most recent lab results are not available for this patient. 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 low Ki-67, mitotic rate less than 5/5 mm???. Less than 5 cm in size and tumor is confined to submucosa with a clear surgical margin , so clinical stage Ia, as per NCCN guideline, patient has low risk gastric GIST and based on prognostic profiling, metastatic rate is about 1.9% and risk per CAP is very low, moreover gastric GIST carries febrile prognosis compared to intestinal GIST., As per NCCN guidelines, there is no role of adjuvant therapy rather observation. So we will follow him 3 to 6 months in the first year then 6 to 8 months, as per patient he is scheduled to see his surgeon in [place] in December 2021 for follow-up MRI scan of abdomen. In that case we will see him back in 6 months with CBC CMP In the meantime we will draw baseline CBC, as patient has undergone partial gastrectomy, there is a possibility he may develop combined iron/B12 deficiency due to malabsorption. Signed By: Martin Noland M.D. <<Signature on File>>
== END 2021-07-13 11:45 | disposition home or self-care (01) ==
PROVIDERS: PCP Family Medicine; Visit Provider Internal Medicine Hematology & Oncology
DX: C49.A2 Gastrointestinal stromal tumor of stomach (principal); I10 Essential (primary) hypertension; N40.0 Benign prostatic hyperplasia without lower urinary tract symptoms; Z79.899 Other long term (current) drug therapy; Z87.891 Personal history of nicotine dependence
CPT/HCPCS: 36415; 85025; 99205

== ENCOUNTER → 2021-09-07 08:38 | Outpatient (BNVA) | payer OTHER, SELFPAY | PROVIDERS: PCP Family Medicine; Visit Provider Urology | DX: N40.0 Benign prostatic hyperplasia without lower urinary tract symptoms (principal); N47.1 Phimosis | CPT/HCPCS: 81003 ==

== ENCOUNTER 2022-05-17 15:39 | Emergency (ER) | payer OTHER, SELFPAY ==
[2022-05-17 15:51] VITALS: BP 132/78; PULSE 69; RESP 14; TEMP 36.7; O2SAT 99; BMI 31.8
[2022-05-17] MEDS: ketorolac 60 mg/2 mL INJ IM (16:14)
[2022-05-17] MEDS: methylPREDNISolone (DEPO) 40 mg/mL INJ 1 mL IM (16:24)
--- NOTE | 2022-05-22 12:25 | ED_ITS ---
HPI - Back Pain/Injury General: Chief Complaint: Back Pain/Injury Stated Complaint: back pain Time Seen by Provider: 05/17/22 15:51 History of Present Illness: Patient is in today for low back pain x1 week. He reports that it seems to radiate to his buttocks on the left side. He denies any specific injury. He denies any saddle anesthesia, loss of bowel or bladder control. He denies any fever, chills, nausea, vomiting. He denies any urinary symptoms. Associated symptoms: Deny chills or fever(s) Review of Systems Const: Denies: fever(s), chills or body aches Card: Denies: chest pain or palpitations Resp: Denies: dyspnea, productive cough or non-productive cough Musc: Reports: back pain [facility] ED PFSH: Medical History (Updated 05/17/22 @ 16:12 by CORNELIA Camacho) Alcohol intake above recommended sensible limits BPH (benign prostatic hyperplasia) Bradycardia Gout Hyperlipidemia Hypertension Nicotine dependence Obesity Family History (Updated 09/07/21 @ 08:48 by Rae Lainez LPN) Mother Healthy adult Father , at age 72 No problems noted. Social History (Updated 09/07/21 @ 08:49 by Rae Lainez LPN) Smoking and tobacco status: never smoked Alcohol intake: current Alcohol intake frequency: 3 or more drinks per day Alcohol type: beer Marital status: Current occupational status: unemployed History of recent travel: No Physical Exam Const: COMMON NORMALS: no acute distress, patient oriented x3 and alert Resp: COMMON NORMALS: normal respiratory effort and No use of accessory muscles Back/Pelvis: OTHER: Patient has some lumbar paraspinal muscle tenderness to palpation. No vertebral point tenderness of the lumbar spine. No obvious bony or soft tissue deformities appreciated. Palpation of the left side lumbar paraspinal musculature as well as the left buttocks in the sciatic region reproduces pain complaint. Patient is ambulating with a normal gait. Neuro: COMMON NORMALS: patient oriented x3 SENSORIUM/ORIENTATION: Yes alert Course Vital Signs: Vital signs: Vital Signs Temperature 98.1 F 05/17/22 15:51 Pulse Rate 69 05/17/22 15:51 Respiratory Rate 14 05/17/22 15:51 Blood Pressure 132/78 05/17/22 15:51 Pulse Oximetry 99 05/17/22 15:51 Oxygen Delivery Me thod 05/17/22 15:51 MDM - Back Pain/Injury Medical Decision Making Consider sciatica, lumbar ago, muscle spasm. We will treat patient conservatively with Toradol and a steroid to help with pain and inflammation. Educated him about possible benefits and side effects of medications provided today. Follow-up with primary care provider. Return to the ER as needed for new or worsening symptoms. Discharge Plan Discharge Patient Disposition: Home Clinical Impression: Strain of lumbar region Condition: Stable Prescriptions: New baclofen 10 mg tablet 10 mg PO Q8H PRN (Reason: muscle spasm) Qty: 10 0RF No Action amlodipine 5 mg tablet See Rx Instructions .ROUTE .COMPLEX Qty: 90 2RF Dose Instruction: TAKE 1 TABLET BY MOUTH EVERY DAY Rx Instructions: TAKE 1 TABLET BY MOUTH EVERY DAY bisoprolol-hydrochlorothiazide 2.5-6.25 mg tablet See Rx Instructions .ROUTE .COMPLEX Qty: 90 2RF Dose Instruction: TAKE 1 TABLET BY MOUTH EVERY MORNING Rx Instructions: TAKE 1 TABLET BY MOUTH EVERY MORNING benazepril 5 mg tablet See Rx Instructions .ROUTE .COMPLEX Qty: 90 3RF Dose Instruction: TAKE 1 TABLET BY MOUTH EVERY DAY Rx Instructions: TAKE 1 TABLET BY MOUTH EVERY DAY allopurinol 300 mg tablet 300 mg PO QAM Discharge Orders: Discharge ED (Routine); Ordered 05/17/22 Ordered By: Yamilex Cruz Referrals: Ronaldo Curran MD [Primary Care Provider] - Discharge Diet: Usual diet Discharge Activity: Resume usual activity Patient Instructions: Low Back Strain (ED), Lower Back Exercises (ED) Activity Restrictions/Additional Instructions: Use baclofen as needed as directed. Do not drink alcohol or take any other medications that make you sleepy with this medication. Do not drive after taking baclofen. Limit lifting for the next 3 to 5 days. Alternate ice and heat to the area to help with pain and inflammation. You may take ibuprofen every 8 hours, with food, as needed for pain. Do not take any ibuprofen for at least 8 hours after receiving your Toradol shot today. Follow-up with primary care provider as needed. Return to the ER for any new or worsening symptoms including, but not limited to, numbness or tingling in your groin area, loss of bowel or bladder control, fever, chills, nausea, vomiting. Coding Level of Care Code ED Dope Dry House Operator for Evelin Kelly
== END 2022-05-17 16:20 | disposition home or self-care (01) ==
PROVIDERS: Emergency Provider Nurse Practitioner Family; PCP Family Medicine
DX: S39.012A Strain of muscle, fascia and tendon of lower back, initial encounter (principal); E78.5 Hyperlipidemia, unspecified; I10 Essential (primary) hypertension; X58.XXXA Exposure to other specified factors, initial encounter
CPT/HCPCS: 96372; 99284; J1030; J1885

== ENCOUNTER → 2023-07-16 15:20 | Outpatient (BNVA) | payer MEDICARE, OTHER, SELFPAY | PROVIDERS: PCP Family Medicine; Visit Provider Family Medicine | DX: Z51.81 Encounter for therapeutic drug level monitoring (principal); E55.9 Vitamin D deficiency, unspecified; K31.89 Other diseases of stomach and duodenum; R25.2 Cramp and spasm; E53.8 Deficiency of other specified B group vitamins; E11.9 Type 2 diabetes mellitus without complications; R53.81 Other malaise; R53.83 Other fatigue; N40.0 Benign prostatic hyperplasia without lower urinary tract symptoms; M54.2 Cervicalgia; M54.50 Low back pain, unspecified; R03.0 Elevated blood-pressure reading, without diagnosis of hypertension; I10 Essential (primary) hypertension | CPT/HCPCS: 80053; 82306; 82607; 83036; 83735; 84153; 84439; 84443; 85025; 86141 ==

== ENCOUNTER → 2023-12-25 07:45 | Outpatient (BNVA) | payer MEDICARE, OTHER, SELFPAY | PROVIDERS: PCP Family Medicine; Referring Provider Family Medicine; Visit Provider Surgery | DX: L72.3 Sebaceous cyst (principal) | CPT/HCPCS: 99203 ==

== ENCOUNTER 2024-01-06 07:43 | Day surgery (SDC) | payer MEDICARE, OTHER, SELFPAY ==
[2024-01-06] VITALS (11 sets, daily range): BP systolic 115–140; BP diastolic 61–85; PULSE 47–62; RESP 8–18; TEMP 36.1–36.8; O2SAT 96–100; BMI 31.4
--- NOTE | 2024-01-06 06:52 | P.HPUD_ITS ---
Surgery/Procedure H&P Update DATE OF PROCEDURE: January 06, 2024 DATE H&P PERFORMED: 12/25/23 H&P UPDATE INFORMATION: I have reviewed H&P completed within last 30 days, I have examined patient prior to procedure, No changes to prior documentation and H&P is in [facility] EMR on date indicated PLANNED PROCEDURE: Operation Date: 01/06/24 09:15 Proposed Procedures p Excision of subcutaneous back mass x3 88601, L72.3(Not Applicable) - Rodriguez Medina MD
--- NOTE | 2024-01-06 08:31 | ANES.PREANE2 ---
Pre-Anesthetic Assessment Height/Weight: Height 1.83 m Weight 105.233 kg O2 Del Method Room Air 01/06/24 08:19 Operation Date: 01/06/24 09:15 Proposed Procedures p Excision of subcutaneous back mass x3 00479, L72.3(Not Applicable) - Rodriguez Medina MD Familial anesthetic complications: None Was Beta Clara taken within 24 hours: N/A Was Clonidine taken within 24 hours: N/A Last intake: Intake Last Liquid Date 01/05/24 Last Liquid Time 22:00 Last Solid Date 01/05/24 Last Solid Time 20:00 Social Alcohol (6-8 beers a day) and No tobacco Exam alert, oriented x 3, clear to auscultation bilaterally and regular rate & rhythm Airway Mallampati: Class IV Dentition: other (missing) CV/HEM Hypertension GI GIST s/p surgical resection, denies any issues w/ reflux or N/V Anesthetic Plan ASA status: 2 Anesthesia: Choice Risk of > 500 ml blood loss (7ml/kg in children): No Medications/Allergies Home Medications Medication Instructions Recorded Confirmed Last Taken Type amlodipine 2.5 mg tablet 2.5 mg PO BID #180 tabs 08/14/23 01/03/24 01/06/24 Rx allopurinol 300 mg tablet 300 mg PO DAILY 01/03/24 01/03/24 01/03/24 History benazepril 5 mg tablet 5 mg PO DAILY 01/03/24 01/03/24 01/03/24 History bisoprolol 2.5 1 tab PO DAILY 01/03/24 01/03/24 01/06/24 History mg-hydrochlorothiazide 6.25 mg tablet Allergies Allergy/AdvReac Type Severity Reaction Status Date / Time bee venom protein (honey bee) Allergy Severe anaphylaxis Verified 12/25/23 08:00 Penicillins Allergy ALGY-Anaphy Verified 12/25/23 08:00 laxis [facility] Anesthesia Medical History (Updated 11/14/23 @ 14:43 by Ronaldo Curran MD) Bradycardia Nicotine dependence Alcohol intake above recommended sensible limits Obesity Hyperlipidemia Gout BPH (benign prostatic hyperplasia) Hypertension Surgical History (Updated 12/25/23 @ 08:03 by HEMA Combs) Umbilical hernia History of cholecystectomy History of gastric surgery 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 Social History (Updated 12/25/23 @ 08:03 by HEMA Combs) Smoking and tobacco/nicotine status: current every day tobacco/nicotine user (chewing tobacco) cigarettes and smokeless tobacco Smokeless tobacco user: chewing tobacco Alcohol intake: current Alcohol intake frequency: 3 or more drinks per day Alcohol type: beer Substance/Drug Use: never Marital status: Current occupational status: retired Data Anesthesia Cardiac Studies: No Data to Display
[2024-01-06] MEDS: sodium chloride 0.9% 1,000 ML 30 ML IV (08:43)
[2024-01-06] MEDS: vancomycin 1,500 MG/300 ML PIGGYBACK 200 MG IV (10:31)
[2024-01-06] MEDS: lidocaine-epi 1% PF 1:200,000 30 mL SDV INJECTION (10:50)
[2024-01-06] MEDS: BUPivacaine 0.25% INJ 30 mL INJECTION (10:50)
[2024-01-06] MEDS: neomycin-poly-bacitracin oint 28 gm 1 APPLIC TOPICAL (12:03)
--- NOTE | 2024-01-06 12:05 | P.OP_ITS ---
Operative Report Date of procedure: January 06, 2024 Pre-op diagnosis: Multiple subcutaneous lesions of the back Post-op diagnosis: Subcutaneous masses of the back x 5 Post-op findings: There was 5 subcutaneous cystic lesions on the back, located in the left upper back, left lower back, upper central back, mid central back and lower central back. Procedure done: Excision of subcutaneous lesions of the back x 5 Implants: None Specimens removed/disposition: Left upper back mass, left lower back mass, upper central back mass, mid central back mass, lower central back mass Surgeon: Rodriguez Medina MD Chief Dietitian: CLYDE OR STaff Estimated blood loss: 10 Complications: none Brief History: 68 male who presented to my clinic with multiple masses of the back for excision. After discussion of all the risk and benefits and documented my preop note we decided to proceed. Procedure: Patient was brought into the OR, he was placed in a supine position. General anesthesia was given. Patient was then transferred to the OR table in a prone position. The back was prepped and draped in the usual sterile fashion. Timeout was conducted. 5 lesions were identified on the back located in the left upper back, left lower back, upper central back, mid central back and lower central back, all needed lesions were marked with an elliptical circumference around, each of them measure about 1 to 2 cm in length. I started with the left upper back mass, with a 15 blade and made an elliptical incision including the lesion in the center, the incision was deepened to the subcutaneous tissue with a 15 blade, I then used electrocautery to circumferentially dissect the lesion from the surrounding subcutaneous tissue, taking careful consideration and chris ping the complete capsule intact. The mass was completely excised and passed to the scrub table to be sent as pathology. Hemostasis was achieved. 10 cc of local anesthesia was infiltrated. The wound was irrigated. The wound was then closed in layers using #2-0 Vicryl for the deep tissue, #3-0 Vicryl for the subcutaneous tissue and #3-0 nylon vertical mattress sutures for the skin. The same procedure was then repeated for the left lower back mass, upper central back mass, mid central back mass and lower central back mass. Findings were similar during every mass excision. After closure of the wounds a compressive dressing was applied on each of the surgical incisions. At the end of the procedure all counts were correct, the patient tolerated well the procedure and was transferred to the PACU in stable condition.
[2024-01-06] MEDS: oxyCODONE 5 mg IR Tab/Cap PO (13:17)
--- NOTE | 2024-01-06 13:45 | ANE.PACU2 ---
Inpatient post-anesthesia follow up: Airway intact: Yes Vital signs: Temperature 97.3 F Pulse Rate 48 Respiratory Rate 17 Blood Pressure 139/76 Pulse Oximetry 99 Oxygen Delivery Me thod Room Air Oxygen Flow Rate Fraction of Inspir ed Oxygen Hydration adequate: Yes Nausea and vomiting: No Pain level: 1 Mental status: Baseline
== END 2024-01-06 13:45 | disposition home or self-care (01) ==
PROVIDERS: PCP Family Medicine; Visit Provider Surgery
PROC: (CPT 11400; principal; 2024-01-06 09:05)
DX: L72.0 Epidermal cyst (principal); I10 Essential (primary) hypertension; E78.5 Hyperlipidemia, unspecified; N40.0 Benign prostatic hyperplasia without lower urinary tract symptoms; F17.220 Nicotine dependence, chewing tobacco, uncomplicated
CPT/HCPCS: 11400 ×2; 11401; 11402; 11403; 12032; 88307; J1100; J2250; J2405; J2704; J3010; J3370; J3490; J7030

== ENCOUNTER → 2024-01-22 08:07 | Outpatient (BNVA) | payer MEDICARE, OTHER, SELFPAY | PROVIDERS: PCP Family Medicine; Visit Provider Surgery | DX: R03.0 Elevated blood-pressure reading, without diagnosis of hypertension (principal); Z98.890 Other specified postprocedural states | CPT/HCPCS: 99024 ==

== ENCOUNTER 2024-04-23 21:18 | Emergency (ER) | payer MEDICARE, OTHER, SELFPAY ==
[2024-04-23 21:27] VITALS: BP 170/108; PULSE 100; RESP 17; TEMP 37.7; O2SAT 96; BMI 31.1
--- NOTE | 2024-04-23 22:44 | ED_ITS ---
HPI - Fever 2 General: Chief Complaint: Fever Stated Complaint: fever Time Seen by Provider: 04/23/24 21:44 Source: patient and family Mode of arrival: ambulatory Limitations: no limitations History of Present Illness: Patient presents emergency department today accompanied by his for evaluation and treatment of fever, diarrhea, body aches, sore throat, headache, decreased appetite starting yesterday. Incidentally, patient had a FESS procedure on his right nasal passage and sinus cavity on 04/14 [place]. 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 He has packing currently in his right nasal passage. Patient reports he only had to take 1 pain pill as he has had no difficulty since his procedure until yesterday. Patient states that all of a sudden symptoms started with fevers getting up to 104. He did go to the doctor yesterday who did his procedure to let them know. They provided him tramadol as his other pain medication actually was causing him to feel itchy when he took it, but told him that the symptoms can occur after his procedure. states that the patient has not hardly ate or drink anything today due to his symptoms and since he is not better, brings him in tonight. is also concerned as the right side of his face seemed more swollen today. Related Data Home Medications Medication Instructions Recorded Confirmed allopurinol 300 mg tablet 300 mg PO DAILY 01/03/24 04/05/24 benazepril 5 mg tablet 5 mg PO DAILY 01/03/24 04/05/24 Previous Rx's Medication Instructions Recorded amlodipine 2.5 mg tablet 2.5 mg PO BID #180 tabs 08/14/23 oxycodone 5 mg tablet 5 mg PO Q8H PRN pain #14 tabs 01/06/24 bisoprolol 2.5 See Rx Instructions .Route 03/10/24 mg-hydrochlorothiazide 6.25 mg .COMPLEX #90 tabs tablet cefdinir 300 mg capsule 300 mg PO BID 21 days #42 caps 03/13/24 doxycycline hyclate 100 mg tablet 100 mg PO BID 10 days #20 tabs 04/24/24 ondansetron 4 mg disintegrating 4 mg PO Q8H 5 days #15 tabs 04/24/24 tablet Allergies Allergy/AdvReac Type Severity Reaction Status Date / Time bee venom protein (honey bee) Allergy Severe anaphylaxis Verified 01/22/24 08:18 Penicillins Allergy ALGY-Anaphy Verified 01/22/24 08:18 laxis Review of Systems 2 General: Reports: 10 or more systems reviewed and unremarkable except in HPI and below PFSH ED 2 PFSH: Medical History (Updated 04/24/24 @ 01:01 by VIKTORIA Gooden) Bradycardia Nicotine dependence Alcohol intake above recommended sensible limits Obesity Hyperlipidemia Gout BPH (benign prostatic hyperplasia) Hypertension Surgical History History of sebaceous cyst Removal of 5 sebaceous cysts - 12/2023 - Dr Medina Umbilical hernia History of cholecystectomy History of gastric surgery 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 Social History Smoking and tobacco/nicotine status: never used tobacco/nicotine Alcohol intake: current Alcohol intake frequency: 3 or more drinks per day Alcohol type: beer Substance/Drug Use: never Marital status: Current occupational status: retired Physical Exam 2 Const: COMMON NORMALS: patient oriented x3 and alert OTHER: Patient is pleasant and answers his own history but, is obviously uncomfortable and does not feel well today. Temperature 99.9 degrees. Blood pressure slightly elevated. HENMT: OTHER: Pharynx is minimally erythematous without signs of bleeding. Oral membranes somewhat dry. Right nasal passage is erythematous with a thick, yellow nasal mucus present. Left nasal passage appears patent. Patient nontender to palpation of the left maxillary sinus region. Right-sided tenderness on palpation. No specific nasal bone tenderness. Eye: COMMON NORMALS: Equal, round and reactive pupils present, EOMs intact bilaterally and conjunctivae normal CONJUNCTIVA: Yes conjunctivae normal P UPIL: Yes Equal, round and reactive pupils present Neck/C-Spine: COMMON NORMALS: no JVD Lymph: LYMPHATIC: no lymphadenopathy noted Resp: COMMON NORMALS: normal respiratory effort, No retractions and No use of accessory muscles Cardio: COMMON NORMALS: no JVD and regular rate RATE: regular rate : COMMON NORMALS: Yes no CVA tenderness BLADDER/KIDNEY EXAM: Yes no CVA tenderness Back/Pelvis: COMMON NORMALS: no CVA tenderness, thoracic and lumbar spine normal to inspection and thoraco-lumbar ROM normal Extremity: COMMON NORMALS: normal to inspection, full ROM and no pedal edema Neuro: COMMON NORMALS: patient oriented x3 SENSORIUM/ORIENTATION: Yes alert Skin: COMMON NORMALS: no rashes or lesions noted and turgor normal GENERAL SKIN EXAM: no rashes or lesions noted and turgor normal Course 2 Vital Signs: Vital signs: Vital Signs Temperature 98.1 F 04/24/24 01:33 Pulse Rate 76 04/24/24 01:33 Respiratory Rate 18 04/24/24 01:33 Blood Pressure 144/78 04/24/24 01:33 Pulse Oximetry 98 04/24/24 01:33 Oxygen Delivery Me thod Room Air 04/23/24 21:27 MDM - Fever Medical Decision Making Patient presented to the ER today status post sinus surgery by 1 week. Patient had been doing well up until yesterday when he developed sudden onset symptoms of headache, body aches, sore throat. states fever started after they went up to the surgeons office. She has had difficulty getting the patient to drink and stay hydrated and as he was not having noticeable improvement of his symptoms today, brought him in for evaluation. Lab work does show slightly elevated white blood cell count and, noticeable decrease in his baseline GFR and elevation in his creatinine. Patient received 2 L of fluid here in the emergency department to address this. Given the type of surgery the patient had and his symptoms, we did proceed on with CT examination of the head and the face looking for signs of abscess or bony injury which could have allowed for infiltration of infectious fluid. However, CT examination was negative for any abnormalities within or around the brain. Patient has findings of a nasal fracture on the right side but, patient has a history of a nasal injury in the past and was not noted to be either chronic or acute. Patient with multiple areas of mucosal thickening of several of the sinuses suspicious either for inflammatory process or infectious process. Given his symptoms and recent surgery, could very well be both. I did discuss the case with Dr. Castillo. At this point, would recommend patient be treated with some antibiotics and as we need to consider the possibility of atypical infection, will treat with doxycycline. Had a long discussion with the patient and his about his evaluation here today. He does have an upcoming appointment with his surgeon on Saturday but we discussed returning to the emergency department through the weekend if he has any change or worsening in his condition or, is not tolerating fluids to stay hydrated. Explained that he does have a decrease in his kidney function and should be closely monitored. There are any concerns regarding either is hydration status or his symptoms he needs to be brought back to the ER. Patient and verbalized understanding and agreement to treatment plan. Differential Diagnosis Unlikely abdominal pain, acute appendicitis, calculus of kidney, diverticulitis, gastroenteritis or pancreatitis Lab Data 04/23/24 22:36 04/23/24 22:[address] 04/23/24 23:02 IMPRESSION: 1. Bilateral ethmoid, right sphenoid and right maxillary sinus mucosal thickening. 2. 3.3 mm leftward deviation of the mid bony nasal septum is likely chronic. 3. Bilateral hojp-wxkbcox-hnno-right partial mastoid air cell opacification may reflect an infectious or inflammatory process. 4. Chronic odontogenic disease. 5. Right nasal bone fracture Head CT 04/23/24 23:02 IMPRESSION: Negative for intracranial hemorrhage or mass effect. Laboratory Results WBC 12.57 10^3/uL (3.29-11.43) H 04/23/24 22:36 RBC 4.52 10^6/uL (3.85-5.65) 04/23/24 22:36 Hgb 14.60 g/dL (11.27-16.99) 04/23/24 22:36 Hct 44.2 % (37-53) 04/23/24 22:36 MCV 97.8 fl (82-101) 04/23/24 22:36 MCH 32.3 pg (27-33) 04/23/24 22:36 MCHC 33.0 g/dL (30-55) 04/23/24 22:36 RDW 13.1 % (12.1-15.1) 04/23/24 22:36 Plt Count 256 10^3/cmm (157-399) 04/23/24 22:36 MPV 11.0 fL (7.4-10.4) H 04/23/24 22:36 Neut % (Auto) 88.9 % 04/23/24 22:36 Lymph % (Auto) 4.6 % 04/23/24 22:36 [place] % (Auto) 4.9 % 04/23/24 22:36 Eos % (Auto) 0.7 % 04/23/24 22:36 Baso % (Auto) 0.4 % 04/23/24 22:36 Neut # (Auto) 11.17 10^3/uL (1.8-7.7) H 04/23/24 22:36 Lymph # (Auto) 0.6 10^3/uL (0.8-4.8) L 04/23/24 22:36 [place] # (Auto) 0.6 10^3/uL (0.2-0.9) 04/23/24 22:36 Eos # (Auto) 0.1 10^3/uL (0.0-0.8) 04/23/24 22:36 Baso # (Auto) 0.1 10^3/uL (0.0-0.1) 04/23/24 22:36 Nucleated RBC % (auto) 0 % 04/23/24 22:36 Nucleated RBCs # 0.0 /100WBC 04/23/24 22:36 Sodium 136 mmol/L (136-145) 04/23/24 22:36 Potassium 3.8 mmol/L (3.5-5.1) 04/23/24 22:36 Chloride 99 mmol/L (98-107) 04/23/24 22:36 Carbon Dioxide 22 mmol/L (22-29) 04/23/24 22:36 Anion Gap 18.8 (5-19) 04/23/24 22:36 BUN 17 mg/dL (8-23) 04/23/24 22:36 Creatinine 1.1 mg/dL (0.7-1.2) 04/23/24 22:36 GFR Calculation 67.0 mL/min (90-130) L 04/23/24 22:36 Glucose 106 mg/dL (65-115) 04/23/24 22:36 Calculated Osmolality 284 mOsm/kg (285-295) L 04/23/24 22:36 Lactic Acid 1.4 mmol/L (0.5-2.2) 04/23/24 22:36 Calcium 8.7 mg/dL (8.5-10.5) 04/23/24 22:36 Total Bilirubin 0.6 mg/dL (0.15-1.2) 04/23/24 22:36 AST 15 U/L (0-40) 04/23/24 22:36 ALT 15 U/L (0-41) 04/23/24 22:36 Alkaline Phosphatase 38 U/L (40-130) L 04/23/24 22:36 Total Protein 7.3 g/dL (6.6-8.7) 04/23/24 22:36 Albumin 4.1 g/dL (3.5-5.2) 04/23/24 22:36 Globulin 3.2 g/dL (1.3-4.6) 04/23/24 22:36 Procalcitonin 0.24 ng/mL (0-0.5) 04/23/24 22:36 All radiology interpretation(s) finalized by discharge Discharge Plan Discharge Patient Disposition: Home Clinical Impression: Sinusitis, Status post functional endoscopic sinus surgery (FESS), Fever in adult, Headache Condition: Stable Prescriptions: New ondansetron 4 mg tablet,disintegrating 4 mg PO Q8H 5 Days Qty: 15 0RF doxycycline hyclate 100 mg tablet 100 mg PO BID 10 Days Qty: 20 0RF No Action cefdinir 300 mg capsule 300 mg PO BID 21 Days Qty: 42 0RF amlodipine 2.5 mg tablet 2.5 mg PO BID Qty: 180 3RF bisoprolol-hydrochlorothiazide 2.5-6.25 mg tablet See Rx Instructions .ROUTE .COMPLEX Qty: 90 3RF Dose Instruction: TAKE 1 TABLET BY MOUTH EVERY MORNING Rx Instructions: TAKE 1 TABLET BY MOUTH EVERY MORNING benazepril 5 mg tablet 5 mg PO DAILY Rx Instructions: TAKE 1 TABLET BY MOUTH EVERY DAY allopurinol 300 mg tablet 300 mg PO DAILY Rx Instructions: TAKE 1 TABLET BY MOUTH EVERY DAY oxycodone 5 mg tablet 5 mg PO Q8H PRN (Reason: pain) Qty: 14 0RF Discharge Orders: Discharge ED (Routine); Ordered 04/24/24 Ordered By: Jessica Iverson Referrals: Ronaldo Curran MD [Primary Care Provider] - Discharge Diet: Advance as tolerated Discharge Activity: Increase activity as tolerated Patient Instructions: Sinusitis (ED), FESS (Functional Endoscopic Sinus Surgery) (DC) Activity Restrictions/Additional Instructions: Patient's evaluation today did show slightly elevated white blood cell count concerning for bacterial infection. However, this could also be related to a status post operative condition. Still, patient also had findings of acute decrease in his overall kidney function which we addressed with 2 bags of fluids here tonight. CT examination of the head reveals no signs of any concerns around the brain and CT of the facial bones showed no obvious acute orbital or basilar skull injury to have allowed for any spreading infection from the sinus cavity into the cranium. No signs of any obvious abscess formation. No signs of any pockets of blood. However, patient has multiple sinuses that have either bacterial and or inflammatory findings including maxillary, sphenoid, and ethmoid sinuses. Given the recent surgery and the potential for some atypical bacteria in these areas, we are going to treat with doxycycline. First dose was provided here in the emergency department tonight with the rest being sent to the pharmacy. I am also providing some antinausea medication as it is essential that the patient be able to tolerate his antibiotics and, have a desire to try and increase his fluids. The patient does not have obvious improvement and ability to increase his fluid intake over the next 24 and no longer than 48 hours, he needs to be seen and reevaluated back here in the emergency department. Keep the upcoming appointment you have with the surgeon on Saturday for follow-up. Any change in the patient's condition indicating acute worsening needs to be seen and reevaluated over the weekend here in the ER. Coding Level of Care Code ED Client Support Representative for Evelin Kelly
[2024-04-23] MEDS: ketorolac 30 mg/mL INJ IVP (22:51)
[2024-04-23] MEDS: sodium chloride 0.9% 1,000 ML 999 ML IV (22:53)
[2024-04-23 23:00] VITALS: BP 143/76; PULSE 81; RESP 19; O2SAT 96
--- NOTE | 2024-04-23 23:00 | PC.NURSE ---
Attempted to collect swabs. Spouse at bedside states secondary to surgery, pt is not allowed to have anything in his nose. Provider made aware.
[2024-04-23 23:01] LABS: Basophils # 0.1 10^3/uL (0.0-0.1); Basophils % 0.4 %; Eosinophils # 0.1 10^3/uL (0.0-0.8); Eosinophils % 0.7 %; Hematocrit 44.2 % (37-53); Lymphocytes # 0.6 10^3/uL (0.8-4.8); Lymphocytes % 4.6 %; Mean Corpuscular Hemoglobin 32.3 pg (27-33); Mean Corpuscular Volume 97.8 fl (82-101); Monocytes # 0.6 10^3/uL (0.2-0.9); Monocytes % 4.9 %; Neutrophils # 11.17 10^3/uL (1.8-7.7); Neutrophils % 88.9 %; Nucleated Red Blood Cells % 0 %; Platelet Count 256 10^3/cmm (157-399); Red Blood Count 4.52 10^6/uL (3.85-5.65); Red Cell Distribution Width 13.1 % (12.1-15.1); White Blood Count 12.57 10^3/uL (3.29-11.43)
--- NOTE | 2024-04-23 23:02 | CTR_ITS ---
PROCEDURE INFORMATION: Exam: CT Head Without Contrast Exam date and time: 04/23/2024 11:19 PM Age: 68 years old Clinical indication: Fever; Prior surgery; Surgery date: 3-7 days post-operative; Surgery type: Sinus SX; Additional info: ALLAN, fever, S/P sinus surgery 1 wk ago TECHNIQUE: Imaging protocol: Computed tomography of the head without contrast. Radiation optimization: All CT scans at this facility use at least one of these dose optimization techniques: automated exposure control; mA and/or kV adjustment per patient size (includes targeted exams where dose is matched to clinical indication); or iterative reconstruction. COMPARISON: CT facial bones wo con* [id number] 04/23/2024 11:19 PM RADIATION DOSE METRICS: Total DLP (mGy-cm): 1206.3 FINDINGS: Brain: Normal. No hemorrhage. Unremarkable white matter. No mass effect. Cerebral ventricles: No ventriculomegaly. Paranasal sinuses: Paranasal sinus opacifications. Mastoid air cells: Visualized mastoid air cells are well aerated. Bones: Unremarkable. No acute fracture. Soft tissues: Unremarkable. CT/CT head wo con* [id number] IMPRESSION: Negative for intracranial hemorrhage or mass effect.
--- NOTE | 2024-04-23 23:02 | CTR_ITS ---
PROCEDURE INFORMATION: Exam: CT Maxillofacial Without Contrast Exam date and time: 04/23/2024 11:19 PM Age: 68 years old Clinical indication: Fever and nasal congestion and sinusitis; Chronic; Prior surgery; Surgery date: Post-operative (0-2 days); Surgery type: Sinus SX; Additional info: Fever, ALLAN, S/P RT sinus surgery 1 wk ago TECHNIQUE: Imaging protocol: Computed tomography of the face without contrast. Radiation optimization: All CT scans at this facility use at least one of these dose optimization techniques: automated exposure control; mA and/or kV adjustment per patient size (includes targeted exams where dose is matched to clinical indication); or iterative reconstruction. COMPARISON: CT head wo con* [id number] 04/23/2024 11:19 PM RADIATION DOSE METRICS: Total DLP (mGy-cm): 846.9 FINDINGS: Paranasal sinuses: No air-fluid levels. Orbital cavities: Orbits are normal. Globes are unremarkable. Mastoid air cells: Bilateral tsab-ectzmuk-nekf-right partial mastoid air cell opacification may reflect an infectious or inflammatory process. Nasal cavity: 3.3 mm leftward deviation of the mid bony nasal septum is likely chronic. Teeth: Chronic odontogenic disease. Bones: Bilateral ethmoid, right sphenoid and right maxillary sinus mucosal thickening. Right nasal bone fracture Soft tissues: Unremarkable. Other findings: . CT/CT facial bones wo con* [id number] IMPRESSION: 1. Bilateral ethmoid, right sphenoid and right maxillary sinus mucosal thickening. 2. 3.3 mm leftward deviation of the mid bony nasal septum is likely chronic. 3. Bilateral sdfs-aqphvnh-vxjl-right partial mastoid air cell opacification may reflect an infectious or inflammatory process. 4. Chronic odontogenic disease. 5. Right nasal bone fracture
[2024-04-23 23:25] LABS: Alanine Aminotransferase 15 U/L (0-41); Albumin Level 4.1 g/dL (3.5-5.2); Alkaline Phosphatase 38 U/L (40-130); Anion Gap 18.8 (5-19); Aspartate Amino Transferase 15 U/L (0-40); Blood Urea Nitrogen 17 mg/dL (8-23); Calcium 8.7 mg/dL (8.5-10.5); Carbon Dioxide 22 mmol/L (22-29); Chloride 99 mmol/L (98-107); Creatinine Clr Calc Pharmacy 82.4936; Globulin 3.2 g/dL (1.3-4.6); Glucose 106 mg/dL (65-115); Osmolality Calculated 284 mOsm/kg (285-295); Potassium 3.8 mmol/L (3.5-5.1); Sodium 136 mmol/L (136-145); Total Bilirubin 0.6 mg/dL (0.15-1.2); Total Protein 7.3 g/dL (6.6-8.7)
[2024-04-23 23:27] LABS: Lactic Sepsis W/Reflex 1.4 mmol/L (0.5-2.2)
[2024-04-23 23:30] VITALS: BP 120/79; PULSE 83; RESP 17; O2SAT 95
[2024-04-23 23:32] LABS: Procalcitonin 0.24 ng/mL (0-0.5)
[2024-04-24] VITALS: BP 128/76; PULSE 73; RESP 15; O2SAT 95
[2024-04-24] MEDS: sodium chloride 0.9% 1,000 ML 999 ML IV (00:11)
[2024-04-24] MEDS: metoclopramide 5 mg/mL SDV 2 mL 10 MG IVP (01:22)
[2024-04-24] MEDS: doxycycline 100 mg Tablet PO (01:22)
[2024-04-24 01:33] VITALS: BP 144/78; PULSE 76; RESP 18; TEMP 36.7; O2SAT 98
== END 2024-04-24 01:36 | disposition home or self-care (01) ==
PROVIDERS: Emergency Provider Physician Assistant; PCP Family Medicine
DX: J32.9 Chronic sinusitis, unspecified (principal); Z98.890 Other specified postprocedural states; R50.9 Fever, unspecified; R51.9 Headache, unspecified; I10 Essential (primary) hypertension
CPT/HCPCS: 36415; 70450; 70486; 80053; 83605; 84145; 85025; 87040; 96361; 96374; 96375; 99285; J1885; J2765; J7030

== ENCOUNTER → 2024-12-01 10:44 | Outpatient (BNVA) | payer MEDICARE, OTHER, SELFPAY | PROVIDERS: PCP Family Medicine; Visit Provider Family Medicine | DX: Z00.00 Encounter for general adult medical examination without abnormal findings (principal); R03.0 Elevated blood-pressure reading, without diagnosis of hypertension; N40.0 Benign prostatic hyperplasia without lower urinary tract symptoms; Z13.6 Encounter for screening for cardiovascular disorders; Z51.81 Encounter for therapeutic drug level monitoring | CPT/HCPCS: 80053; 80061; 84153; 84550; 85025 ==

== ENCOUNTER 2024-12-15 09:42 | Outpatient (CLI) | payer MEDICARE, OTHER, SELFPAY ==
--- NOTE | 2024-12-15 06:30 | MR_ITS ---
WS: [id number] MRI ABDOMEN WITH AND WITHOUT CONTRAST. COMPARISON: MRI 05/10/2021, CT abdomen 02/03/2021 Multiplanar, multisequence imaging is performed with and without contrast. MultiHance 19 mL. History: Gastric GIST tumor removal. Stomach is moderately well distended. Heterogeneous material within the stomach. Probably from a recent meal. There is an additional mass measuring 1.6 x 1.8 x 1.6 cm associated with the posterior gastric mucosa seen only on a few sequences that was not present on the prior study. This area does not enhance. This needs to be further evaluated for possible recurrence of GIST tumor. The large tumor previously described in the stomach mucosa has been surgically excised. No enhancing masses are identified. The liver is normal size. Seen only on one image of a coronal sequence is an area of increased signal in the medial RIGHT lobe of the liver measuring 1.2 cm. Otherwise liver is negative. Reidentified is a small pancreatic head cyst measuring 1 cm which is unchanged and does not enhance. Cyst is less well identified on today's exam and may be a crossing vessel. No pancreatic duct dilatation. Kidneys are normal size with numerous cysts. None of these cysts enhance. Gallbladder is not identified and may've been surgically removed although that history was not provided. No adenopathy. MR/MR abdomen wo/w con* [id number] IMPRESSION: 1. Status post surgical resection of the GIST tumor since 05/10/2021. 2. New well-circumscribed mass without significant enhancement noted adjacent to the posterior gastric mucosa measures 1.6 x 1.8 x 1.6 cm. This may represent recurrence of the GIST tumor. Recommend follow-up PET/CT imaging. This is only seen on a few sequences but may be obscured by breathing motion artifact. 3. New T2 signal abnormality measuring 1.2 cm in the medial RIGHT lobe of the liver. Seen only on a single image. This may be a crossing vessel. Metastatic s ite should be excluded. PET/CT recommended. 4. Numerous bilateral renal cysts do not enhance. Some of these contain increa sed protein content. 5. Gallbladder not identified. May have been surgically removed. 6. No change in the small cyst associated with the pancreatic head.
[2024-12-15] MEDS: gadobenate dimeglumine 20 mL vial 19 ML IV (10:49)
== END 2024-12-15 09:43 | disposition home or self-care (01) ==
PROVIDERS: PCP Family Medicine; Visit Provider Family Medicine
DX: K31.89 Other diseases of stomach and duodenum (principal); Z85.09 Personal history of malignant neoplasm of other digestive organs; Z98.890 Other specified postprocedural states; R93.5 Abnormal findings on diagnostic imaging of other abdominal regions, including retroperitoneum; R93.2 Abnormal findings on diagnostic imaging of liver and biliary tract; N28.1 Cyst of kidney, acquired; K86.2 Cyst of pancreas
CPT/HCPCS: 74183; A9577

== ENCOUNTER 2025-01-22 07:53 | Outpatient (CLI) | payer MEDICARE, OTHER, SELFPAY ==
--- NOTE | 2025-01-22 08:30 | PETR_ITS ---
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 Then, PET images were obtained. Attenuation corrected images were constructed using the CT scan. Fused images of PET and CT were reviewed. The standardized uptake values (SUV) reported below are maximum values within a region of interest, expressed in gm/ml. Exam includes orbital meatal line to mid-thigh. SUV normalization method: BodyWeight Radiopharmaceutical: 12.71 mCi F-18 FDG (Fluorodeoxyglucose), IV. Time of imaging post radiopharmaceutical administration: 49 minutes Injection site: left ac COMPARISON: 1. CT abdomen pelvis w con* [id number] 02/03/2021 9:14 AM 2. MR abdomen wo/w con* [id number] 12/15/2024 10:33 AM FINDINGS: Brain: Visualized brain has normal physiologic uptake. Paranasal sinuses: Mildly FDG avid right maxillary sinus mucosal thickening with evidence of prior maxillary antrostomy. Pharynx: No abnormal uptake. Larynx: No abnormal uptake. Lungs, pleura and trachea: No abnormal uptake. Heart: Normal physiologic uptake. Mediastinal space: No abnormal uptake. Liver: No abnormal uptake. Gallbladder and biliary ducts: No abnormal uptake. Suspect prior cholecystectomy. Pancreas: No abnormal uptake. Spleen: No abnormal uptake. Calcified granulomata. Adrenal glands: No abnormal uptake. Kidneys and ureters: Normal physiologic uptake. Stomach and bowel: No abnormal uptake. Gastric postsurgical change from prior GIST resection. No gastric mass or abnormal FDG uptake. Specifically, no focal abnormality corresponding to MRI finding of concern at the posterior gastric fundus, which may have been on the basis of artifact. Focal FDG uptake at the colon hepatic flexure without discrete underlying CT abnormality shows SUV max 47.7 on axial image 177. Focal uptake at the proximal sigmoid colon appears to correspond to a diverticulum, SUV max 12.2 on axial image 239. Vasculature: No abnormal uptake. Mild systemic atherosclerotic calcification without aortic aneurysm. Lymph nodes: FDG avid right upper paratracheal node measures 1.1 cm in the short axis on axial image 86 and shows SUV max 4.3. Lower level uptake at nonenlarged lower right paratracheal and right hilar nodes with right hilar SUV max 3.1 on axial image 106. Lower level left hilar uptake without discrete underlying node shows SUV max 2.7 on axial image 102. Calcified prevascular nodes in keeping with sequela of old granulomatous disease. Skeleton: No abnormal uptake in the visualized axial and appendicular skeleton. Degenerative change along the spine and sacroiliac joints. Soft tissues: No abnormal uptake in the visualized head, neck, chest, abdomen, pelvis, and extremities. Mild bilateral gynecomastia. Small fat containing umbilical and voem-jczkwvs-dfjd-right inguinal hernias. METRICS: Mediastinal blood pool: SUV mean 2.0 Liver uptake: SUV mean 2.6 PET/PET skull to thigh INIT [id number] IMPRESSION: 1. No evidence of recurrent gastric GIST. 2. Avid focal FDG uptake at the colon hepatic flexure without discrete underlying CT abnormality with SUV max 47.7. This may be inflammatory or neoplastic. Consider colonoscopy. 3. Less avid focal FDG uptake at the proximal sigmoid colon appearing to correspond to a diverticulum is favored inflammatory. 4. FDG avid right paratracheal and lower level wvzqa-vimiruk-erxb-left hilar uptake could be benign granulomatous, neoplastic process not entirely excluded. 5. Inflammatory right maxillary sinus disease. 6. Additional chronic and incidental findings as above.
== END 2025-01-22 07:54 | disposition home or self-care (01) ==
LOC: RAD 07:55
PROVIDERS: PCP Family Medicine; Visit Provider Family Medicine
DX: C49.A2 Gastrointestinal stromal tumor of stomach (principal); R59.0 Localized enlarged lymph nodes
CPT/HCPCS: 78815; A9552

== ENCOUNTER → 2025-03-02 13:52 | Outpatient (BNVA) | payer MEDICARE, OTHER, SELFPAY | PROVIDERS: PCP Family Medicine; Visit Provider Surgery | DX: Z12.11 Encounter for screening for malignant neoplasm of colon (principal) | CPT/HCPCS: 99024; 99214 ==

== ENCOUNTER 2025-03-11 10:29 | Day surgery (SDC) | payer MEDICARE, OTHER, SELFPAY ==
[2025-03-11 10:51] VITALS: BP 144/76; PULSE 51; RESP 16; TEMP 36.3; O2SAT 98; BMI 31.1
--- NOTE | 2025-03-11 11:55 | W.PM.OPSUD ---
Surgery/Procedure H&P Update DATE OF PROCEDURE: March 11, 2025 DATE H&P PERFORMED: 03/02/25 H&P UPDATE INFORMATION: I have reviewed H&P completed within last 30 days, I have examined patient prior to procedure, No changes to prior documentation, Changes to prior documentation as noted here and Risks and benefits of the procedure reviewed PLANNED PROCEDURE: Operation Date: 03/11/25 12:00 Proposed Procedures p Colonoscopy [id number] [id number] Z12.11(Not Applicable) - Rodriguez Medina MD
--- NOTE | 2025-03-11 12:05 | ANES.PREANE2 ---
Pre-Anesthetic Assessment Height/Weight: Height 1.83 m Weight 104.326 kg Temp Pulse Resp BP Pulse Ox O2 Del Method 97.3 F L 51 L 16 144/76 98 Room Air 03/11/25 10:51 03/11/25 10:51 03/11/25 10:51 03/11/25 10:51 03/11/25 10:51 03/11/25 10:51 Operation Date: 03/11/25 12:00 Proposed Procedures p Colonoscopy [id number] [id number] Z12.11(Not Applicable) - Rodriguez Medina MD Familial anesthetic complications: None Was Beta Calra taken within 24 hours: N/A Was Clonidine taken within 24 hours: N/A Last intake: Intake Last Liquid Date 03/10/25 Last Liquid Time 22:30 Last Solid Date 03/09/25 Last Solid Time 18:00 Social No alcohol and No tobacco Exam alert, oriented x 3, clear to auscultation bilaterally and regular rate & rhythm Airway Mallampati: Class I Dentition: full Pulmonary None reported CV/HEM Hypertension Anesthetic Plan ASA status: 2 Anesthesia: MAC Risk of > 500 ml blood loss (7ml/kg in children): No Medications/Allergies Home Medications ?Medication ?Instructions ?Recorded ?Confirmed ?Last Taken ?Type multivitamin 1 tab PO DAILY 12/01/24 03/11/25 03/10/25 07:00 History amlodipine 2.5 mg tablet 2.5 mg PO BID #180 tabs 01/19/25 03/11/25 03/10/25 07:00 Rx allopurinol 300 mg tablet 300 mg PO DAILY 03/08/25 03/11/25 03/10/25 07:00 History benazepril 5 mg tablet 5 mg PO DAILY 03/08/25 03/11/25 03/10/25 07:00 History bisoprolol 2.5 1 tab PO DAILY 03/08/25 03/11/25 03/10/25 07:00 History mg-hydrochlorothiazide 6.25 mg tablet Allergies Allergy/AdvReac Type Severity Reaction Status Date / Time bee venom protein (honey bee) Allergy Severe anaphylaxis Verified 03/11/25 10:46 Penicillins Allergy ALGY-Anaphy Verified 03/11/25 10:46 laxis Current Medications Generic Name Dose Route Start Last Admin Trade Name Freq PRN Reason Stop Dose Admin Sodium Chloride 1,000 mls @ 15 mls/hr 03/11/25 10:39 03/11/25 10:54 Sodium Chloride 0.9% IV 03/12/25 10:38 15 mls/hr .Q24H PRN Administration COLONOSCOPY FLUIDS PFSH Anesthesia Medical History Gastrointestinal stromal tumor (GIST) of stomach Bradycardia Nicotine dependence Alcohol intake above recommended sensible limits Obesity Hyperlipidemia Gout BPH (benign prostatic hyperplasia) Hypertension Surgical History History of sebaceous cyst Removal of 5 sebaceous cysts - 12/2023 - Dr Medina Umbilical hernia History of cholecystectomy History of gastric surgery 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 Social History Smoking and tobacco/nicotine status: never used tobacco/nicotine Alcohol intake: current Alcohol intake frequency: 3 or more drinks per day Alcohol type: beer Substance/Drug Use: never Marital status: Current occupational status: retired Current occupation: [employer]
[2025-03-11 13:20] VITALS: BP 131/89; PULSE 68; RESP 16; TEMP 36.1; O2SAT 95
[2025-03-11 13:44] VITALS: BP 150/93; PULSE 52; RESP 18; O2SAT 98
[2025-03-11 14:15] VITALS: BP 155/97; PULSE 54; RESP 18; O2SAT 100
== END 2025-03-11 14:27 | disposition home or self-care (01) ==
PROVIDERS: PCP Family Medicine; Visit Provider Surgery
PROC: 0DJD8ZZ Inspection of Lower Intestinal Tract, Via Natural or Artificial Opening Endoscopic (ICD-10-PCS; CPT 45378; principal; 2025-03-11 12:00)
DX: Z12.11 Encounter for screening for malignant neoplasm of colon (principal); D12.2 Benign neoplasm of ascending colon; D12.0 Benign neoplasm of cecum; D12.3 Benign neoplasm of transverse colon; I10 Essential (primary) hypertension; R00.1 Bradycardia, unspecified; E66.9 Obesity, unspecified; Z68.31 Body mass index [BMI] 31.0-31.9, adult; E78.5 Hyperlipidemia, unspecified
CPT/HCPCS: 45380; 45385; 88305; J2704; J3490; J7030

== ENCOUNTER → 2025-04-06 08:04 | Outpatient (BNVA) | payer MEDICARE, OTHER, SELFPAY | PROVIDERS: PCP Family Medicine; Visit Provider Surgery | DX: Z09 Encounter for follow-up examination after completed treatment for conditions other than malignant neoplasm (principal) | CPT/HCPCS: 99213 ==